=== PATIENT | female | born 1965 | race Caucasian/White ===

== ENCOUNTER 2020-03-27 10:31 | Emergency (ER) | payer SELFPAY ==
[~2020-03-27] VITALS: Ht 154.9 cm; Wt 52.2 kg
[2020-03-27 11:05] VITALS: BP_SYST 130
[2020-03-27 12:29] LABS: BASOPHILS % (AUTO) 0.2 % (0.0-2.0); HEMATOCRIT 37.6 % (36-48); HEMOGLOBIN 11.9 g/dL (12.0-16.0); LYMPHOCYTES # (AUTO) 1.2 K/uL (1.0-5.5); LYMPHOCYTES % (AUTO) 12.1 % (20.5-51.5); MEAN CORPUSCULAR HEMOGLOBIN 26 pg (27-31); MEAN CORPUSCULAR HGB CONC 32 % (32-36); MEAN CORPUSCULAR VOLUME 84 fL (79.0-98.0); MONOCYTES # (AUTO) 0.6 K/uL (0.0-1.0); MONOCYTES % (AUTO) 6.4 % (1.7-9.3); NEUTROPHILS # (AUTO) 7.9 K/uL (1.8-7.7); NEUTROPHILS % (AUTO) 81.3 % (40.0-70.0); PLATELET COUNT (AUTO) 407 K/uL (130-430); RED CELL DISTRIBUTION WIDTH 16.4 % (9.0-15.0); WHITE BLOOD COUNT (AUTO) 9.8 K/uL (4.8-10.8)
[2020-03-27 12:56] LABS: ALBUMIN 3.5 g/dL (3.4-4.8); CALCIUM 9.6 mg/dL (8.4-11.0); CREATININE 0.65 mg/dL (0.55-1.30); POTASSIUM 4.3 mmol/L (3.5-5.1); TOTAL BILIRUBIN 0.4 mg/dL (0.0-1.0)
[2020-03-27 13:01] LABS: BILIRUBIN,URINE 1+ (NEGATIVE); BLOOD, URINE NEGATIVE (NEGATIVE); CLARITY/URINE CLEAR (CLEAR); COLOR,URINE YELLOW (YELLOW); GLUCOSE,URINE NEGATIVE (NEGATIVE); KETONES,URINE 3+ (NEGATIVE); LEUKOCYTE ESTERASE ,URINE NEGATIVE (NEGATIVE); NITRITE, URINE NEGATIVE (NEGATIVE); PROTEIN URINE TRACE (NEGATIVE)
[2020-03-27 13:07] LABS: BACTERIA,URINE RARE /HPF (None Seen); RBC,URINE 0-3 /HPF (0-3); WBC,URINE 0-3 /HPF (0-3)
--- NOTE | 2020-03-27 13:49 | NUR ---
Patient to ER bed 08 to gown for evaluation. Side rails up.
[2020-03-27] MEDS ORDERED: KETOROLAC TROMETHAMINE 60 MG/2 ML VIAL IM ONE (14:00)
--- NOTE | 2020-03-27 14:01 | NUR ---
CALM, ALERT, GUARDED ABD PAIN, COMMUNICATES CLEARLY. RESP UNLABORED. LAST BM 2 DAYS AGO AND VOMITING THIS AM, UPON ARRIVAL, SHE APPEARS LETHARGIC, AND DISTENDED AND TENDER.
--- NOTE | 2020-03-27 14:06 | NUR ---
DR LINDSEY IN TO ASSESS
--- NOTE | 2020-03-27 14:49 | NUR ---
DR LINDSEY IN TO ASSESS
--- NOTE | 2020-03-27 15:03 | NUR ---
Patient given written and verbal discharge instructions and verbalizes understanding. ER MD discussed with patient the results and treatment provided. Patient in stable condition. ID arm band removed. Rx of TRAMADOL given. Patient educated on pain management and to follow up with PMD. Pain Scale 2/10 Opportunity for questions provided and answered. Medication side effect fact sheet provided.
[2020-03-27 15:04] VITALS: BP_SYST 127
== END 2020-03-27 15:04 | disposition home or self-care (01) ==
LOC: SED 10:31
DX: K56.7 Ileus, unspecified (principal)
CPT/HCPCS: 36415; 74018; 80053; 81000; 83690; 85025; 96372; 99284; J1885

== ENCOUNTER 2020-04-06 11:44 | Inpatient (IN) | payer OTHER, SELFPAY ==
[~2020-04-06] VITALS: Ht 154.9 cm; Wt 51.3 kg
[2020-04-06 11:50] VITALS: BP_SYST 125
--- NOTE | 2020-04-06 12:05 | NUR ---
Patient to ER bed H1 to gown for evaluation. Side rails up.
--- NOTE | 2020-04-06 12:06 | NUR ---
ER at bedside examining patient.
--- NOTE | 2020-04-06 12:10 | NUR ---
Pt brought by self,A&O x4 , pt presents to ER with abdominal pain/bloating, N/V,constipation x 1 week, skin pink and warm, cap refill <3, VSS, respirations even and unlabored, denie bleeding.
[2020-04-06] MEDS ORDERED: NACL 0.9% 1,000 ML IV ONE (13:15)
[2020-04-06 14:02] LABS: BASOPHILS % (AUTO) 0.3 % (0.0-2.0); HEMATOCRIT 35.7 % (36-48); HEMOGLOBIN 11.5 g/dL (12.0-16.0); LYMPHOCYTES # (AUTO) 1.2 K/uL (1.0-5.5); LYMPHOCYTES % (AUTO) 15.1 % (20.5-51.5); MEAN CORPUSCULAR HEMOGLOBIN 27 pg (27-31); MEAN CORPUSCULAR HGB CONC 32 % (32-36); MEAN CORPUSCULAR VOLUME 83 fL (79.0-98.0); MONOCYTES # (AUTO) 0.8 K/uL (0.0-1.0); MONOCYTES % (AUTO) 10.4 % (1.7-9.3); NEUTROPHILS # (AUTO) 5.9 K/uL (1.8-7.7); NEUTROPHILS % (AUTO) 74.2 % (40.0-70.0); PLATELET COUNT (AUTO) 379 K/uL (130-430); RED BLOOD CELL COUNT(AUTO) 4.33 MIL/uL (4.2-6.2); RED CELL DISTRIBUTION WIDTH 16.8 % (9.0-15.0); WHITE BLOOD COUNT (AUTO) 7.9 K/uL (4.8-10.8)
--- NOTE | 2020-04-06 14:09 | NUR ---
at bedside examining patient.
[2020-04-06 14:41] LABS: INR 1.2 (0.8-1.2); PROTHROMBIN TIME 11.6 SECS (9.5-12.5)
[2020-04-06 14:55] LABS: CALCIUM 9.6 mg/dL (8.4-11.0); CREATININE 0.59 mg/dL (0.55-1.30); POTASSIUM 3.8 mmol/L (3.5-5.1)
[2020-04-06 14:59] LABS: ALBUMIN 3.3 g/dL (3.4-4.8); TOTAL BILIRUBIN 0.3 mg/dL (0.0-1.0)
--- NOTE | 2020-04-06 15:05 | NUR ---
Pt resting at this time,no N/V noted, skin pink and warm, cap refill <3. VSS
[2020-04-06] MEDS: NACL 0.9% 1,000 ML IV SCH ×2 (15:44→16:00)
--- NOTE | 2020-04-06 15:56 | NUR ---
Patient will be admitted to care of Dr Hanna. Admitted to Med Surg unit. Will go to room 108C. Belongings list completed. Complete and up to date summary report printed. SBAR report to be given at bedside with opportunity for questions.
--- NOTE | 2020-04-06 16:00 | NUR ---
RECEIVED PT, VITAL SIGNS STABLE. CONTINUE TO MONITOR.
[2020-04-06 16:36] VITALS: BP_SYST 119
--- NOTE | 2020-04-06 17:00 | NUR ---
INSERTED NG TUBE WITH STEPHON BENTON. PT TOLERATED WELL, INTERMITTENT SUCTIONING ON, LIGHT BROWN DRAINAGE NOTED. CONTINUE TO MONITOR.
[2020-04-06] MEDS ORDERED: NALOXONE HCL 0.4 MG/ML AMP (NARCAN) IVP PRN (18:15)
[2020-04-06] MEDS ORDERED: PANTOPRAZOLE SODIUM 40 MG/VIAL (PROTONIX) IVP ONE (18:15)
--- NOTE | 2020-04-06 18:45 | NUR ---
CLOSING NOTES PT AWAKE, ALERT, AND ORIENTED. NONLABORED BREATHING NOTED ON ROOM AIR. PT DENIES PAIN AND SOB AT THIS TIME. NG TUBE INTACT AND ON INTERMITTENT SUCTIONING, LIGHT BROWN DRAINAGE NOTED. IV LINE INTACT AND PATENT, NO SIGNS OF INFILTRATION NOTED, FLUIDS RUNNING ORDERED, TOLERATING WELL. BED LOCKED AND IN LOWEST POSITION. ALL NEEDS MET. CALL LIGHT IN REACH. FALL AND ASPIRATION PRECAUTIONS IN PLACE. WILL ENDORSE TO NOC NURSE.
--- NOTE | 2020-04-06 19:30 | NUR ---
OPENING NOTES RECEIVED SBAR REPORT FROM DAY SHIFT RN. PT RESTING IN BED WITH HEAD OF BED ELEVATED, ALERT & ORIENTED X4. BREATHING IS EASY AND UNLABORED TO ROOM AIR. VSS. O2 SAT 96%. PT JAMEE ANY PAIN AT THIS TIME. NG TUBE INTACT AND ON INTERMITTENT SUCTIONING. IVF RUNNING ORDERED RATE. NO SIGNS OF INFILTRATION NOTED. BED LOCKED IN LOWEST POSITION. SIDE RAILS UP X3. CALL LIGHT WITHIN REACH. SAFETY AND FALL PRECAUTIONS MAINTAINED. WILL CONTINUE TO MONITOR.
--- NOTE | 2020-04-06 19:42 | NUR ---
CONSULTATION PAGED/CALLED Reason for Consultation: [] ABD PAIN, ILEUS VS PARTIAL SBO Person Who was Notified: [] ODALIS Consulting Physician: [] DR JOSE, SPAGHETTI MACHINE OPERATOR FOR DR Kvng DAWSON Director Business Management Specialty: [] GI Ordering Physician: [] DR ODOM
[2020-04-06 20:00] VITALS: BP_SYST 128
[2020-04-06] MEDS: MORPHINE 2 MG/ML INJ. SYRINGE IVP PRN (20:56)
--- NOTE | 2020-04-06 20:56 | NUR ---
PAIN/MORPHINE PT REPORTING ABDOMINAL PAIN. ADMINISTERED MORPHINE ORDERED PRN. DISCUSSED MEDICATION ACTIONS AND POTENTIAL SIDE EFFECTS. PT VERBALIZED UNDERSTANDING. BREATHING EVEN AND UNLABORED TO ROOM AIR. BED LOCKED IN LOWEST LEVEL. CALL LIGHT WITHIN REACH. SIDE RAILS X3. SAFETY AND FALL PRECAUTIONS MAINTAINED. WILL CONTINUE TO MONITOR.
--- NOTE | 2020-04-06 23:25 | NUR ---
RN ROUNDS PT RESTING IN BED WITH EYES CLOSED. BREATHING EVEN AND UNLABORED TO ROOM AIR. NO S/S OF ACUTE DISTRESS NOTED. IVF RUNNING ORDERED RATE. NO SIGNS OF INFILTRATION NOTED. BED LOCKED IN LOWEST POSITION. CALL LIGHT WITHIN REACH. SAFETY AND FALL PRECAUTIONS ARE IN PLACE. WILL CONTINUE TO MONITOR.
[2020-04-07 00:43] LABS: BILIRUBIN,URINE 2+ (NEGATIVE); BLOOD, URINE NEGATIVE (NEGATIVE); CLARITY/URINE CLEAR (CLEAR); COLOR,URINE YELLOW (YELLOW); GLUCOSE,URINE NEGATIVE (NEGATIVE); KETONES,URINE 3+ (NEGATIVE); LEUKOCYTE ESTERASE ,URINE NEGATIVE (NEGATIVE); NITRITE, URINE NEGATIVE (NEGATIVE); PH,URINE 5.5 (5.0-8.0); PROTEIN URINE NEGATIVE (NEGATIVE)
[2020-04-07 01:16] VITALS: BP_SYST 126
--- NOTE | 2020-04-07 01:40 | NUR ---
RESTING PT RESTING IN BED. BREATHING IS EVEN AND UNLABORED TO ROOM AIR. NG TUBE INTACT, INTERMITTENT SUCTIONING. NO SIGNS OF ACUTE DISTRESS NOTED. IVF RUNNING ORDERED RATE. PT TOLERATING WELL. BED LOCKED IN LOWEST POSITION. CALL LIGHT WITHIN REACH. SAFETY AND FALL PRECAUTIONS MAINTAINED. WILL CONTINUE TO MONITOR.
--- NOTE | 2020-04-07 04:05 | NUR ---
RN ROUNDS PT SLEEPING. BREATHING EVEN AND UNLABORED TO ROOM AIR. NO SIGNS OF ACUTE DISTRESS NOTED. PT DENIES PAIN. IVF RUNNING ORDERED RATE. NO SIGNS OF INFILTRATION. CALL LIGHT WITHIN REACH. SAFETY AND FALL PRECAUTIONS MAINTAINED. WILL CONTINUE TO MONITOR.
[2020-04-07] MEDS: NACL 0.9% 1,000 ML IV SCH (05:24)
--- NOTE | 2020-04-07 06:14 | NUR ---
Nutrition Update Abhijeet scale 16 noted. Pt admitted for small bowel obstruction. Diet: NPO BMI: 21.4 kg/m2 RD to follow per nutrition care standards.
--- NOTE | 2020-04-07 06:43 | NUR ---
CLOSING NOTES PT RESTING IN BED WITH HEAD OF BED ELEVATED. BREATHING IS EVEN AND UNLABORED TO ROOM AIR. NG TUBE INTACT AND ON INTERMITTENT SUCTIONING. IVF RUNNING ORDERED RATE. NO SIGNS OF INFILTRATION NOTED. BED LOCKED IN LOWEST LEVEL. SIDE RAILS UP X3. ALL NEEDS ARE MET THROUGHOUT SHIFT. CALL LIGHT WITHIN REACH. SAFETY AND FALL PRECAUTIONS MAINTAINED. WILL CONTINUE TO MONITOR UNTIL ENDORSE TO DAY SHIFT RN.
[2020-04-07 07:39] LABS: BASOPHILS % (AUTO) 0.2 % (0.0-2.0); HEMATOCRIT 31.6 % (36-48); HEMOGLOBIN 10.2 g/dL (12.0-16.0); LYMPHOCYTES # (AUTO) 0.8 K/uL (1.0-5.5); LYMPHOCYTES % (AUTO) 10.2 % (20.5-51.5); MEAN CORPUSCULAR HEMOGLOBIN 27 pg (27-31); MEAN CORPUSCULAR HGB CONC 32 % (32-36); MEAN CORPUSCULAR VOLUME 83 fL (79.0-98.0); MONOCYTES # (AUTO) 0.9 K/uL (0.0-1.0); MONOCYTES % (AUTO) 10.5 % (1.7-9.3); NEUTROPHILS # (AUTO) 6.6 K/uL (1.8-7.7); NEUTROPHILS % (AUTO) 79.1 % (40.0-70.0); PLATELET COUNT (AUTO) 349 K/uL (130-430); RED BLOOD CELL COUNT(AUTO) 3.81 MIL/uL (4.2-6.2); RED CELL DISTRIBUTION WIDTH 16.3 % (9.0-15.0); WHITE BLOOD COUNT (AUTO) 8.3 K/uL (4.8-10.8)
[2020-04-07 08:28] LABS: ALBUMIN 2.7 g/dL (3.4-4.8); BILIRUBIN,DIRECT 0.1 mg/dL (0.0-0.3); CALCIUM 8.8 mg/dL (8.4-11.0); CREATININE 0.54 mg/dL (0.55-1.30); POTASSIUM 3.6 mmol/L (3.5-5.1); THYROID STIMULATING HORMONE 0.44 uIu/mL (0.34-4.82); TOTAL BILIRUBIN 0.3 mg/dL (0.0-1.0)
--- NOTE | 2020-04-07 09:29 | NUR ---
Dietitian Recommendations *Recommend continue NPO *Recommend slowly advance diet as tolerated per MD if/when medically feasible. Please see Nutrition Assessment for details. KALLI LYN
[2020-04-07] MEDS: PANTOPRAZOLE SODIUM 40 MG/VIAL (PROTONIX) IVP SCH (10:01)
--- NOTE | 2020-04-07 10:05 | NUR ---
Patient in bed resting. Patient is alert and oriented x4. Patient denies distress, shortness of breath, and pain. patient experienced nausea and vomiting 2x this morning. 250 ml suctioned from NG tube. Patient is passing gas. All AM care needs met. Bed in low position. Call light in reach. 2 side rails up. Will continue to monitor patient.
--- NOTE | 2020-04-07 12:03 | NUR ---
SS NOTES/DCP/SELF-PAY MANAGER OF DIGITAL was referred by SS to see patient for DCP and self-pay. Demographic information update (PTN: Drew Malagon, spouse @ [phone] and NOK: Chiquis Encinas, mom @ [phone]. MANAGER OF DIGITAL phoned pt @ [phone], and stated reason for call. Pt is a 54 y/o female who came in via ED for abd pain. Pt lives with spouse and brother in an apartment on the second floor with 17 steps to get to the door. Pt is independent with her ADL's and no DME. 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 Pt denies any history of mental health and denies any history of substance use. Pt does not have insurance and no insurance through spouse. Pt agreed for Ramiro Weeks to be emailed for [employer] screening, but if pt does not qualify due to earnings, the patient will contact employer for insurance. Pt does not have an advanced directive and would like to get a copy. MANAGER OF DIGITAL will also provide patient with Rx coupon, and outpatient [facility] resource. Addendum: 04/07/20 at 1218 by Jaspreet SIERRA Parallon referral faxed.
[2020-04-07 12:16] VITALS: BP_SYST 133
[2020-04-07] MEDS ORDERED: GASTROGRAFIN 120 ML ONE (12:35)
[2020-04-07] MEDS: KCL 20 mEq in NS 1000 mL 1,000 ML IV SCH (13:07)
[2020-04-07 16:12] VITALS: BP_SYST 125
--- NOTE | 2020-04-07 18:58 | NUR ---
Patient in bed resting. Patient alert and oriented x4. Patient denies shortness of breath and distress. 500ML suctioned from NG tube via intermittent suction. All care needs met. Bed in low position. Call light in reach. 2 side rails up. Will give report to night nurse.
--- NOTE | 2020-04-07 19:30 | NUR ---
OPENING NOTES RECEIVED SBAR REPORT FROM DAY SHIFT RN. PT RESTING IN BED, ALERT & ORIENTED X4. BREATHING EVEN AND UNLABORED TO ROOM AIR. PT DENIES PAIN. NO S/S OF DISTRESS NOTED. NG TUBE INTACT, ON LOW INTERMITTENT SUCTION. IVF RUNNING ORDERED RATE, NO SIGNS OF INFILTRATION NOTED. CALL LIGHT WITHIN REACH. BED LOCKED IN LOWEST POSITION. SAFETY PRECAUTIONS MAINTAINED. WILL CONTINUE TO MONITOR.
[2020-04-07 20:00] VITALS: BP_SYST 134
[2020-04-07] MEDS: ONDANSETRON HCL 4 MG/2 ML VIAL IVP PRN (20:08)
--- NOTE | 2020-04-07 20:08 | NUR ---
ZOFRAN PT REPORTING NAUSEA AND VOMITING. PT VOMITED X1. ADMINISTERED ZOFRAN ORDERED PRN. DISCUSSED MEDICATION ACTIONS AND POTENTIAL SIDE EFFECTS. PT VERBALIZED UNDERSTANDING. CALL LIGHT WITHIN REACH. SAFETY AND FALL PRECAUTIONS MAINTAINED. WILL CONTINUE TO MONITOR.
--- NOTE | 2020-04-07 22:45 | NUR ---
RN ROUNDS PT RESTING IN BED. CHEST RISE AND FALL SYMMETRICAL. NO S/S OF ACUTE DISTRESS NOTED AT THIS TIME. IVF RUNNING ORDERED RATE. PT TOLERATING WELL. CALL LIGHT WITHIN REACH. SIDE RAILS X3. BED LOCKED IN LOWEST POSITION. SAFETY AND FALL PRECAUTIONS ARE IN PLACE. WILL CONTINUE TO MONITOR.
[2020-04-08] VITALS: BP_SYST 113
--- NOTE | 2020-04-08 00:35 | NUR ---
MIDNIGHT VITAL SIGN MIDNIGHT VITAL SIGN STABLE. BREATHING EVEN AND UNLABORED TO ROOM AIR. O2 SAT 97%. NO S/S OF DISTRESS NOTED. BED LOCKED IN LOWEST POSITION. CALL LIGHT WITHIN REACH. SAFETY AND FALL PRECAUTIONS ARE IN PLACE. WILL CONTINUE TO MONITOR.
--- NOTE | 2020-04-08 02:55 | NUR ---
RN ROUND PT SLEEPING, CHEST RISE AND FALL SYMMETRICAL. BREATHING EVEN AND UNLABORED TO ROOM AIR. NO S/S OF SHORTNESS OF BREATH OR PAIN NOTED. CALL LIGHT WITHIN REACH. SAFETY PRECAUTIONS MAINTAINED. WILL CONTINUE TO MONITOR.
--- NOTE | 2020-04-08 05:00 | NUR ---
RN ROUNDS PT VOMITED AGAIN. 50ML SUCTIONED FROM NG TUBE VIA INTERMITTENT SUCTION. BREATHING EVEN AND UNLABORED TO ROOM AIR. IVF RUNNING ORDERED RATE. NO SIGNS OF INFILTRATION NOTED. BED ALARM ON, BED LOCKED IN LOWEST POSITION. CALL LIGHT WITHIN REACH. SIDE RAILS UP. SAFETY AND FALL PRECAUTIONS MAINTAINED. WILL CONTINUE TO MONITOR.
--- NOTE | 2020-04-08 06:40 | NUR ---
CLOSING NOTES PT RESTING IN BED. BREATHING EVEN AND UNLABORED TO ROOM AIR. PT DENIES PAIN. NO S/S OF ACUTE DISTRESS NOTED. NG TUBE INTACT, ON LOW INTERMITTENT SUCTION. IVF RUNNING ORDERED RATE, NO SIGNS OF INFILTRATION NOTED. CALL LIGHT WITHIN REACH. BED LOCKED IN LOWEST POSITION. SAFETY PRECAUTIONS MAINTAINED. ALL NEEDS ARE MET THROUGHOUT SHIFT. WILL CONTINUE TO MONITOR UNTIL ENDORSE TO DAY SHIFT RN.
[2020-04-08 06:52] LABS: BASOPHILS % (AUTO) 0.2 % (0.0-2.0); HEMATOCRIT 32.6 % (36-48); HEMOGLOBIN 10.6 g/dL (12.0-16.0); LYMPHOCYTES % (AUTO) 9.4 % (20.5-51.5); MEAN CORPUSCULAR HEMOGLOBIN 27 pg (27-31); MEAN CORPUSCULAR HGB CONC 33 % (32-36); MEAN CORPUSCULAR VOLUME 83 fL (79.0-98.0); MONOCYTES # (AUTO) 1.2 K/uL (0.0-1.0); MONOCYTES % (AUTO) 11.3 % (1.7-9.3); NEUTROPHILS # (AUTO) 8.1 K/uL (1.8-7.7); NEUTROPHILS % (AUTO) 79.1 % (40.0-70.0); PLATELET COUNT (AUTO) 370 K/uL (130-430); RED BLOOD CELL COUNT(AUTO) 3.94 MIL/uL (4.2-6.2); RED CELL DISTRIBUTION WIDTH 16.6 % (9.0-15.0); WHITE BLOOD COUNT (AUTO) 10.2 K/uL (4.8-10.8)
[2020-04-08] MEDS: KCL 20 mEq in NS 1000 mL 1,000 ML IV SCH ×3 (07:08→17:33)
[2020-04-08 07:37] LABS: ALBUMIN 2.8 g/dL (3.4-4.8); CALCIUM 9.3 mg/dL (8.4-11.0); CREATININE 0.57 mg/dL (0.55-1.30); POTASSIUM 3.8 mmol/L (3.5-5.1); TOTAL BILIRUBIN 0.3 mg/dL (0.0-1.0)
[2020-04-08 07:52] VITALS: BP_SYST 117
--- NOTE | 2020-04-08 08:00 | NUR ---
Note Pt resting in bed with NGT in left nares to LIS at this time. No SOB/resp distress or pain/discomfort noted at this time. IV in right hand intact and patent infusing IVF's well. No needs noted at this time. Call light within reach. Pt is NPO at this time.
[2020-04-08] MEDS: PANTOPRAZOLE SODIUM 40 MG/VIAL (PROTONIX) IVP SCH (08:46)
--- NOTE | 2020-04-08 11:00 | NUR ---
Note Pt sitting up in bed on her cellphone with family/friends at this time. Denies any needs at this time. Call light within reach.
--- NOTE | 2020-04-08 11:40 | NUR ---
Note Pt given Zofran IVP at this time for emesis.
[2020-04-08] MEDS: ONDANSETRON HCL 4 MG/2 ML VIAL IVP PRN ×2 (11:41→23:45)
[2020-04-08 12:29] VITALS: BP_SYST 144
--- NOTE | 2020-04-08 14:10 | NUR ---
Note Pt resting in bed and denies any needs at this time. NGT to LIS on at this time. Call light within reach. Pt has been NPO all shift with some ice chips to moisten mouth.
[2020-04-08 16:37] VITALS: BP_SYST 131
--- NOTE | 2020-04-08 17:19 | NUR ---
CONSULT SURGERY SBO CAMILO MOORE [phone] S/W PARVIZ RESENDEZ
--- NOTE | 2020-04-08 17:20 | NUR ---
Note Dr Hanna came to assess pt at bedside at 1500. Results of the Small Bowel x-ray were given to Dr Hanna at 1700. Pt resting in bed with NGT to LIS on all shift. No needs noted at this time. Call light within reach.
--- NOTE | 2020-04-08 18:45 | NUR ---
Note Dr Rudy Walls called and orders received and followed. Pt resting in bed with NGT through left nares. IVF's infusing through right forearm - which is patent and intact all shift. Pt was checked on q1' and PRN all shift for needs and care. Pt denies any needs at this time. Call light within reach. Pt denies any SOB/resp distress or pain/discomfort at this time.
--- NOTE | 2020-04-08 19:00 | NUR ---
Note diesel technician stated NGT was not seen when doing chest x-ray at this time. NGT was advanced and another CXR done. NGT now in place in the abdomen.
[2020-04-08 19:25] VITALS: BP_SYST 120
--- NOTE | 2020-04-08 19:25 | NUR ---
INITIAL NOTES PATIENT IS STABLE AND LAYING IN BED. NO S/S OF RESPIRATORY DISTRESS NOTED. CALL LIGHT IN REACH. PATIENT SUCCESSFULLY DEMONSTRATES USAGE OF CALL LIGHT. BED IS LOCKED, AND AT THE LOWEST POSITION. PATIENT EDUCATED ON BED ALARM, PATIENT REFUSED. FALL, SAFETY, ASPIRATION, AND RESPIRATORY PRECAUTIONS WILL BE IN PLACE THROUGHOUT THE SHIFT. Addendum: 04/08/20 at 2203 by Ba Smith RN PLAN OF CARE IS DISCUSSED WITH PATIENT.
--- NOTE | 2020-04-08 19:35 | NUR ---
AMBULATED TO RESTROOM/NG TUBE DISLODGMENT PATIENT AMBULATED TO THE RESTROOM AT THIS TIME. PATIENT STATED SHE FELT WEAK. PATIENT REQUESTED BEDSIDE COMMODE. PATIENT NG TUBE WAS MOVED OUT AT THIS TIME. RE-INSERTED. PATIENT TOLERATED WELL. MADE CHARGE NURSE AWARE. CHARGE NURSE STATED TO ORDER CHEST X RAY PER PROTOCOL.
--- NOTE | 2020-04-08 20:05 | NUR ---
CHEST X RAY DONE TECH STATED IT WAS IN PLACE.
--- NOTE | 2020-04-08 22:00 | NUR ---
PATIENT IS SLEEPING AND STABLE IN BED. NO S/S OF RESPIRATORY DISTRESS NOTED. CALL LIGHT IN REACH.
--- NOTE | 2020-04-09 00:10 | NUR ---
AMBULATED TO BEDSIDE COMMODE PATIENT AMBULATED TO BEDSIDE COMMODE. PT TOLERATED WELL. NO S/S OF RESPIRATORY DISTRESS NOTED. CALL LIGHT IN REACH.
[2020-04-09 01:18] VITALS: BP_SYST 131
--- NOTE | 2020-04-09 02:10 | NUR ---
PT VOMITED PT VOMITED AT THIS TIME. PT VOMITED 300 CC AT THIS TIME. NO S/S OF RESPIRATORY DISTRESS NOTED. WILL CONTINUE TO MONITOR.
--- NOTE | 2020-04-09 03:48 | NUR ---
AMBULATED TO BEDSIDE COMMODE PATIENT AMBULATED TO BEDSIDE COMMODE. PT TOLERATED WELL. NO S/S OF RESPIRATORY DISTRESS NOTED. CALL LIGHT IN REACH.
[2020-04-09] MEDS: KCL 20 mEq in NS 1000 mL 1,000 ML IV SCH (04:35)
--- NOTE | 2020-04-09 04:58 | NUR ---
AMBULATED TO BEDSIDE COMMODE PATIENT AMBULATED TO BEDSIDE COMMODE. PT TOLERATED WELL. NO S/S OF RESPIRATORY DISTRESS NOTED. CALL LIGHT IN REACH.
--- NOTE | 2020-04-09 06:21 | NUR ---
CLOSING NOTES PATIENT IS STABLE AND LAYING IN BED. NO S/S OF RESPIRATORY DISTRESS NOTED. CALL LIGHT IN REACH. BED IS LOCKED AND AT THE LOWEST POSITION. FALL,SAFETY, ASPIRATION, AND RESPIRATORY PRECAUTION HAS BEEN IN PLACE THROUGHOUT THE SHIFT. WILL CONTINUE TO MONITOR UNTIL REPORT IS ENDORSED AM NURSE BY BEDSIDE.
[2020-04-09 06:54] LABS: BASOPHILS % (AUTO) 0.4 % (0.0-2.0); EOSINOPHILS % (AUTO) 0.1 % (0.0-4.0); HEMATOCRIT 31.6 % (36-48); HEMOGLOBIN 10.2 g/dL (12.0-16.0); LYMPHOCYTES # (AUTO) 1.2 K/uL (1.0-5.5); LYMPHOCYTES % (AUTO) 12.8 % (20.5-51.5); MEAN CORPUSCULAR HEMOGLOBIN 27 pg (27-31); MEAN CORPUSCULAR HGB CONC 32 % (32-36); MEAN CORPUSCULAR VOLUME 83 fL (79.0-98.0); MONOCYTES # (AUTO) 1.1 K/uL (0.0-1.0); MONOCYTES % (AUTO) 11.9 % (1.7-9.3); NEUTROPHILS # (AUTO) 6.8 K/uL (1.8-7.7); NEUTROPHILS % (AUTO) 74.8 % (40.0-70.0); PLATELET COUNT (AUTO) 344 K/uL (130-430); RED BLOOD CELL COUNT(AUTO) 3.83 MIL/uL (4.2-6.2); WHITE BLOOD COUNT (AUTO) 9.1 K/uL (4.8-10.8)
[2020-04-09 07:27] LABS: ALBUMIN 2.6 g/dL (3.4-4.8); CALCIUM 8.9 mg/dL (8.4-11.0); CREATININE 0.43 mg/dL (0.55-1.30); PHOSPHORUS 2.7 mg/dL (2.7-4.5); POTASSIUM 4.1 mmol/L (3.5-5.1); TOTAL BILIRUBIN 0.3 mg/dL (0.0-1.0)
--- NOTE | 2020-04-09 08:00 | NUR ---
ASSUMPTION OF CARE: RECEIVED PT A/A/OX4, DX: RISK FOR FLUID VOLUME DEFICIT, R/T SMALL BOWEL OBSTRUCTION, AFEBRILE, VSS, NO C/O PAIN, PT HAS EPISODES OF N/V, LIGHT BROWN COLORED EMESIS WITH FOUL ODOR, PRESENTLY HAS NGT CONNECTED TO LOW INTERMITTENT SUCTION, IV FLUIDS OF D51/2NS PLUS 20 MEQ KCL @ 1000CC/HR, IV SITE INTACT, PATENT, NO REDNESS OR SWELLING, ORIENTED TO UNIT, CALL LIGHT PLACED WITHIN REACH, WILL CONT' TO MONITOR AND ASSESS.
[2020-04-09 08:30] VITALS: BP_SYST 121
[2020-04-09] MEDS ORDERED: INSULIN LISPRO SLIDING SCALE 100 UNITS/ML VIAL (humaLOG) SUBCUT PRN (08:45)
[2020-04-09] MEDS ORDERED: D5W 1,000 ML IV PRN (09:00)
[2020-04-09] MEDS ORDERED: GLUCOSE 15 GM GEL (in 37.5 GM TUBE) PO PRN (09:00)
[2020-04-09] MEDS ORDERED: DEXTROSE 50%-WATER 50 ML DISP.SYRIN IVP PRN (09:00)
--- NOTE | 2020-04-09 09:00 | NUR ---
STAGE PRODUCER: MORNING MEDS GIVEN, PER ORDERED BY Mayur, TOLERATED WELL, WILL CONT' TO MONITOR AND ASSESS.
[2020-04-09] MEDS: PANTOPRAZOLE SODIUM 40 MG/VIAL (PROTONIX) IVP SCH (09:06)
[2020-04-09] MEDS: ONDANSETRON HCL 4 MG/2 ML VIAL IVP PRN ×2 (09:21→21:25)
[2020-04-09] MEDS: LORazepam 2 MG/ML VIAL IVP PRN ×2 (09:22→21:12)
--- NOTE | 2020-04-09 11:30 | NUR ---
GLUCOSE MONITORING: BLOOD SUGAR LEVEL=89, NO COVERAGE, WILL CONT' TO MONITOR AND ASSESS.
--- NOTE | 2020-04-09 11:45 | NUR ---
BSG 110 NO INSULIN COVERAGE NEEDED AT THIS TIME. WILL CONTINUE TO MONITOR. Addendum: 04/10/20 at 0058 by Amy Larson RN WRONG TIME ENTRY
[2020-04-09] MEDS: KCL 20 mEq in D5NS 1000 mL 1,000 ML IV SCH ×2 (11:58→21:12)
[2020-04-09 12:00] VITALS: BP_SYST 121
--- NOTE | 2020-04-09 12:30 | NUR ---
GLUCOSE MONITORING: BLOOD SUGAR HBWZU=136, NO COVERAGE, WILL CONT' TO MONITOR AND ASSESS.
--- NOTE | 2020-04-09 13:33 | NUR ---
MD PEÑA PAGED CAMILO BARLOW AT [phone] SPOKE WITH NATE.
--- NOTE | 2020-04-09 15:00 | NUR ---
NGT: 1 LITER OF DRAINAGE DISPOSED OF IN BIO CANISTER, NEW CANISTER PROVIDED, CONTINUOUS DRAINAGE COLLECTING, PT STATES SHE FEELS MUCH BETTER NOW, NO N/V NOTED, WILL CONT' TO MONITOR AND ASSESS.
[2020-04-09 16:53] VITALS: BP_SYST 109
--- NOTE | 2020-04-09 17:00 | NUR ---
GLUCOSE MONITORING: BLOOD SUGAR PRVKR=815, NO COVERAGE, WILL CONT' TO MONITOR AND ASSESS.
--- NOTE | 2020-04-09 19:30 | NUR ---
INITIAL NOTE PT RESTING IN BED. NGT TUBE IN LEFT NARE, ON CONTINUOUS SUCTION. PT DENIES ANY PAIN OR DISCOMFORT AT THIS TIME. EDUCATED PT ON SAFETY AND USE OF CALL LIGHT. PT DEMONSTRATED TEACH BACK. CALL LIGHT WITHIN REACH, BED IN LOW AND LOCKED POSITION.
[2020-04-09 20:00] VITALS: BP_SYST 111
--- NOTE | 2020-04-09 21:25 | NUR ---
ATIVAN/ZOFRAN PT COMPLAINING OF NAUSEA AND RESTLESSNESS. PRN ATIVAN AND ZOFRAN ADMINISTERED AT THIS TIME. NGT SUCTIONING CANISTER 1/3 FULL. WILL CONTINUE TO MONITOR.
--- NOTE | 2020-04-09 23:45 | NUR ---
BSG 110 NO INSULIN COVERAGE NEEDED AT THIS TIME. NO CHANGE IN ASSESSMENT, WILL CONTINUE TO MONITOR
[2020-04-10 00:05] VITALS: BP_SYST 111
--- NOTE | 2020-04-10 02:56 | NUR ---
RN ROUNDS PT COMPLAINING OF DISCOMFORT. PT ON BSC AT THIS TIME, VOIDED X1. PROVIDED PT WITH WASH CLOTHS. ASSISTED PT WITH PARTIAL BED BATH. SUCTION CONNECTED TO NGT, AND SECURED. PT STATES SHE IS HUNGRY AND WOULD LIKE FOOD. EDUCATED PT ON PURPOSE OF BEING KEPT NPO AT THIS TIME. PT VERBALIZED UNDERSTANDING. EDUCATED PT ON NEXT DOSE OF ATIVAN AND ZOFRAN. PT VERBALIZED UNDERSTANDING.
[2020-04-10] MEDS: ONDANSETRON HCL 4 MG/2 ML VIAL IVP PRN ×3 (04:29→20:36)
[2020-04-10] MEDS: KCL 20 mEq in D5NS 1000 mL 1,000 ML IV SCH ×2 (04:30→18:22)
--- NOTE | 2020-04-10 04:32 | NUR ---
NAUSEA PRN ZOFRAN ADMINISTERED AT THIS TIME. NGT TO CONTINUOUS SUCTIONING AND SECURED. WILL CONTINUE TO MONITOR.
[2020-04-10] MEDS: LORazepam 2 MG/ML VIAL IVP PRN ×2 (05:12→19:59)
--- NOTE | 2020-04-10 06:25 | NUR ---
CLOSING NOTE PT RESTING QUIETLY, NO ACUTE DISTRESS NOTED, BREATHING EVEN AND UNLABORED. IVF INFUSING WELL. NGT IN PLACE ON CONTINUOUS SUCTION, OUTPUT THROUGHOUT SHIFT 300CC TOTAL. NO S/S OF NAUSEA AT THIS TIME. ALL NEEDS ME THROUGHOUT SHIFT. CALL LIGHT WITHIN REACH, BED IN LOW AND LOCKED POSITION. WILL CONTINUE TO MONITOR UNTIL PT CARE ENDORSED TO MORNING SHIFT RN.
--- NOTE | 2020-04-10 07:19 | NUR ---
NG TUBE SUCTION 200 CC POSSIBLE SURGERY TODAY. REMAIN NPO PT IS WEAK. BED GONZALES RECOMMENDED STEAD OF BEDSIDE COMMODE.
--- NOTE | 2020-04-10 07:30 | NUR ---
Opening Note Report received from VICTOR M RN. Patient found in [facility], A/Ox4, patient has no complaints at this time. Denies nausea/vomiting. NG tube in place and set to low, intermittent suctioning. At this time, patient's output is 500 cc, brownish color. Patient requesting jello/juice. Patient re-educated that she is NPO at this time. Bed in low and locked position, call light within reach, side rails up x2.
[2020-04-10 08:00] VITALS: BP_SYST 103
--- NOTE | 2020-04-10 08:15 | NUR ---
MD Onel Sykes at bedside, states that patient can eat and remove NG tube. Primary RN will report to MD Hanna.
[2020-04-10] MEDS: PANTOPRAZOLE SODIUM 40 MG/VIAL (PROTONIX) IVP SCH (08:38)
--- NOTE | 2020-04-10 08:45 | NUR ---
MD Cyndi Hanna paged and informed of MD Sykes's assessment. Per MD Hanna, turn off intermittent suction and give patient water. If patient has nausea/vomiting, continue intermittent suctioning and keep patient NPO.
[2020-04-10] MEDS ORDERED: DEXTROSE 50% JECT 50 ML DISP.SYRIN IVP PRN (09:45)
--- NOTE | 2020-04-10 09:45 | NUR ---
PO Challenge Primary RN turned off intermittent suction and provided patient with cup of water, patient denies nausea/vomiting at this time.
--- NOTE | 2020-04-10 10:00 | NUR ---
PO Challenge Patient reports nausea after drinking water. PO challenge fail, patient connected to low intermittent suction.
--- NOTE | 2020-04-10 10:21 | NUR ---
Nutrition F/U Admitting Diagnosis: Small Bowel Obstruction Medical History Comment: PMH: Non-radiating and constant abdominal pain w/ bloating, constipation, nausea and vomiting x 1 week. PSH: cholecystectomy, appendectomy Pt also found w/ paralytic ileus vs SBO per MD note. COVID-19 pending 04/07 Subjective Information: TPN notification received 04/10 0437. Per attending MD notes, abd pain/N/V is resolving, abd distention reduced after adjustment of occluded NGT, c/w copious drainage. MD also noted pt is passing flatus and wants to eat jello. MD wants to keep pt NPO. Per EMR review, pt was started on insulin for DM, pt was seen by Dr. Cobb this morning who noted prolonged NPO status and wants to start PPN. RD agrees. RD s/w pharmD who concurred w/ RD rec for initial PPN concentration. Pt is not yet meeting adequate nutrition and would benefit from nutrition support. Current Diet Order/Nutrition Support: NPO x4 days Pertinent Medications: Protonix, Zofran, Insulin Pertinent Labs: 04/09 Na 128 L, K 4.1WNL, BUN 11 WNL, Cr 0.43 L, BG 63L POC BG 110H Weight (Pounds): 113 pounds 04/07 --No new weight. Skin Integrity Comment: Abhijeet scale 18. 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 (*ongoing) Altered nutrition related labs r/t endocrine dysfunction AEB elevated POC BG and DM. (*new 04/10) Expected Outcomes/Goals Monitor nutrition support and advancement of diet w/ goal of pt meeting more than 75% of estimated nutrient, labs trending WNL, normal GI function, skin integrity, and wt maintenance. Dietitian Recommendations *Recommend continue NPO *Recommend initiate nutrition support. D20% AA8.5% at 42ml/hr, IL20% at 5ml/hr via peripheral line. *Recommend increase PPN to goal: D20% AA8.5% at 90ml/hr, IL20% at 5ml/hr via peripheral line. Provides: 1341 kcal, 92gm protein, 2280ml and GIR 2.9gm CHO/kg/min Meets: 88% of upper end of estimated calorie needs and 151% of upper end of estimated protein needs. Follow Up High Risk: F/U in 2-3days
--- NOTE | 2020-04-10 10:34 | NUR ---
TPN to start/Diet Recommendation Dietitian Recommendations *Recommend continue NPO *Recommend initiate nutrition support. D20% AA8.5% at 42ml/hr, IL20% at 5ml/hr via peripheral line. *Recommend increase PPN to goal: D20% AA8.5% at 90ml/hr, IL20% at 5ml/hr via peripheral line. Provides: 1341 kcal, 92gm protein, 2280ml and GIR 2.9gm CHO/kg/min Meets: 88% of upper end of estimated calorie needs and 151% of upper end of estimated protein needs. Please see Nutrition F/U note for details. SENIOR CARE, RD
[2020-04-10 10:44] LABS: BASOPHILS % (AUTO) 0.4 % (0.0-2.0); EOSINOPHILS % (AUTO) 0.2 % (0.0-4.0); HEMATOCRIT 32.2 % (36-48); HEMOGLOBIN 10.4 g/dL (12.0-16.0); LYMPHOCYTES # (AUTO) 1.3 K/uL (1.0-5.5); LYMPHOCYTES % (AUTO) 16.2 % (20.5-51.5); MEAN CORPUSCULAR HEMOGLOBIN 27 pg (27-31); MEAN CORPUSCULAR HGB CONC 32 % (32-36); MEAN CORPUSCULAR VOLUME 83 fL (79.0-98.0); MONOCYTES % (AUTO) 12.9 % (1.7-9.3); NEUTROPHILS # (AUTO) 5.5 K/uL (1.8-7.7); NEUTROPHILS % (AUTO) 70.3 % (40.0-70.0); PLATELET COUNT (AUTO) 323 K/uL (130-430); RED BLOOD CELL COUNT(AUTO) 3.88 MIL/uL (4.2-6.2); RED CELL DISTRIBUTION WIDTH 17.3 % (9.0-15.0); WHITE BLOOD COUNT (AUTO) 7.8 K/uL (4.8-10.8)
[2020-04-10 10:59] LABS: ALBUMIN 2.3 g/dL (3.4-4.8); CALCIUM 8.4 mg/dL (8.4-11.0); CREATININE 0.48 mg/dL (0.55-1.30); PHOSPHORUS 1.8 mg/dL (2.7-4.5); TOTAL BILIRUBIN 0.2 mg/dL (0.0-1.0)
--- NOTE | 2020-04-10 11:00 | NUR ---
MD Balderas Spoke with MD Balderas via phone, , per MD Balderas, patient is still distended with output still coming out of NG tube. No new orders at this time. Patient is NPO. Primary RN will consult with attending MD Hanna about patient plan.
[2020-04-10] MEDS: INSULIN REGULAR, HUMAN 100 UNITS/ML, 10 ML VIAL (humuLIN R) SUBCUT PRN (11:11)
[2020-04-10] MEDS ORDERED: *PPN PER PHARMACY XX PRN (11:15)
[2020-04-10 12:15] VITALS: BP_SYST 116
[2020-04-10] MEDS ORDERED: [UNRECOGNIZED DRUG - OTHER] IV ONE (12:30)
[2020-04-10] MEDS ORDERED: NS IV ONE (12:30)
[2020-04-10] MEDS: MORPHINE 2 MG/ML INJ. SYRINGE IVP PRN (14:01)
--- NOTE | 2020-04-10 14:11 | NUR ---
Patient Update Patient upset that she is still in hospital. Patient states that she wants to go home because she has not been able to eat since . Patient informed that her abdomen is still distended and she is in pain. Patient advised to remain in hospital until she is seen by attending MD, Cyndi, for further orders and direction. Patient requesting pain medication for lower abdominal pain. 1 mg Morphine IVP provided.
[2020-04-10 16:19] VITALS: BP_SYST 108
--- NOTE | 2020-04-10 16:24 | NUR ---
PIV insertion 22 g PIV to right AC inserted, saline locked.
--- NOTE | 2020-04-10 18:51 | NUR ---
Closing Note Patient in [facility], [facility], bed in low and locked position, side rails up x2, bedside commode close to patient. Patient connected to intermittent suction via NG tube. Patient requires PPN nutrition through IV starting at 2100, will endorse to VICTOR M SZYMANSKI.
[2020-04-10 20:00] VITALS: BP_SYST 122
--- NOTE | 2020-04-10 20:00 | NUR ---
OPENING NOTE PT IS ALERT AND ORIENTED X4. STABLE VITAL SIGNS. REPORTED HIGH ANXIETY. 0.5 MG OF ATIVAN GIVEN WITH ZOFRAN DUE TO VOMITING. SHIFT'S PRIORITY IS TO KEEP PT ON NPO DUE TO POSSIBLE SURGERY TOMORROW, MONITOR GI SYSTEM, MANAGE ANXIETY AND VOMITING, GIVE MEDS ORDERED. BED IN LOW, CALL LIGHT IN REACH, BED RAILS X2.
[2020-04-10] MEDS ORDERED: SODIUM CHLORIDE IV SCH ×10 (21:00)
[2020-04-10] MEDS ORDERED: TPN PERIPHERAL IV SCH ×10 (21:00)
[2020-04-10] MEDS ORDERED: NACL 0.9% 1,000 ML IV SCH (21:00)
[2020-04-10] MEDS ORDERED: POTASSIUM CHLORIDE IV SCH ×10 (21:00)
[2020-04-10] MEDS ORDERED: [UNRECOGNIZED DRUG - OTHER] IV SCH ×10 (21:00)
[2020-04-10] MEDS: FAT EMULSIONS 250 ML IV SCH (23:01)
--- NOTE | 2020-04-11 | NUR ---
MIDNIGHT NOTE REMOVED IV ON RIGHT HAND DUE TO FILTRATION. PT ALSO ACCIDENTLY PULLED OUT RIGHT FOREARM IV. A NEW IV INSERTED ON THE RIGHT HAND, GAUGE 22. TPN, LIPIDS, AND KCL 20 MEQ ARE RUNNING. BED IN LOW, CALL LIGHT IN REACH.
[2020-04-11 00:24] VITALS: BP_SYST 113
[2020-04-11] MEDS: ONDANSETRON HCL 4 MG/2 ML VIAL IVP PRN ×2 (03:56→08:26)
[2020-04-11] MEDS: LORazepam 2 MG/ML VIAL IVP PRN (03:57)
[2020-04-11 07:02] LABS: EOSINOPHILS % (AUTO) 0.1 % (0.0-4.0); MEAN CORPUSCULAR HEMOGLOBIN 27 pg (27-31); MEAN CORPUSCULAR HGB CONC 33 % (32-36); MEAN CORPUSCULAR VOLUME 82 fL (79.0-98.0); MONOCYTES # (AUTO) 0.9 K/uL (0.0-1.0); MONOCYTES % (AUTO) 12.9 % (1.7-9.3); NEUTROPHILS # (AUTO) 4.6 K/uL (1.8-7.7)
[2020-04-11 07:04] LABS: BASOPHILS % (AUTO) 0.3 % (0.0-2.0); HEMATOCRIT 31.5 % (36-48); HEMOGLOBIN 10.3 g/dL (12.0-16.0); LYMPHOCYTES # (AUTO) 1.3 K/uL (1.0-5.5); LYMPHOCYTES % (AUTO) 19.3 % (20.5-51.5); NEUTROPHILS % (AUTO) 67.4 % (40.0-70.0); PLATELET COUNT (AUTO) 325 K/uL (130-430); RED BLOOD CELL COUNT(AUTO) 3.84 MIL/uL (4.2-6.2); RED CELL DISTRIBUTION WIDTH 17.2 % (9.0-15.0); WHITE BLOOD COUNT (AUTO) 6.8 K/uL (4.8-10.8)
--- NOTE | 2020-04-11 07:30 | NUR ---
Opening Note Report received from Mike RN. Patient found in [facility], + nausea/vomiting brown fluid. Patient's NG tube on low continuous suction. Primary RN increased suction to high continuous suction and 1000 ml of brown fluid was removed from NGT. Patient given Zofran and Morphine for nausea/vomiting and abdominal pain. New suction canister placed. Patient is back on low, continuous suction. Patient's peripheral IV to the hand is running PPN fluids and is patent. Will insert another PIV in case of surgery. Abdomen is softer than yesterday but still distended. Bed in low and locked position, side rails up x2, call light within reach.
[2020-04-11 08:00] VITALS: BP_SYST 114
[2020-04-11] MEDS: MORPHINE 2 MG/ML INJ. SYRINGE IVP PRN (08:25)
[2020-04-11 08:34] LABS: ALBUMIN 2.2 g/dL (3.4-4.8); CALCIUM 8.3 mg/dL (8.4-11.0); CREATININE 0.43 mg/dL (0.55-1.30); PHOSPHORUS 3.2 mg/dL (2.7-4.5); POTASSIUM 3.8 mmol/L (3.5-5.1); TOTAL BILIRUBIN 0.1 mg/dL (0.0-1.0)
--- NOTE | 2020-04-11 09:00 | NUR ---
DO Aracely Bose at bedside evaluating patient. Patient's NG tube now has green/yellow liquid coming through tube. Per DO Jessica, hold off on surgery with another day of low, continuous suction. Patient encouraged to ambulate frequently to help with peristalsis of her bowels.
--- NOTE | 2020-04-11 10:00 | NUR ---
Ambulation Primary RN ambulated with patient around [facility] perales. Patient reports mild lightheadedness with ambulation but associates this with laying down for multiple days. Patient has steady gait with minor assist. Patient walked about 200 feet.
[2020-04-11] MEDS ORDERED: GASTROGRAFIN 120 ML ONE (11:01)
[2020-04-11 12:00] VITALS: BP_SYST 115
--- NOTE | 2020-04-11 13:27 | NUR ---
Ambulation Patient ambulated around [facility] perales with nurse assist, approximately 200 ft.
[2020-04-11 16:00] VITALS: BP_SYST 112
[2020-04-11] MEDS: PANTOPRAZOLE SODIUM 40 MG/VIAL (PROTONIX) IVP SCH (17:57)
--- NOTE | 2020-04-11 19:08 | NUR ---
Closing Note Patient to go to surgery, pending consent from surgeon, DO Balderas. OR team at bedside. Will endorse care to NOC RN.
--- NOTE | 2020-04-11 19:20 | NUR ---
OPENING NOTES, DR. COULTER AT BEDSIDE Received patient resting in bed, no signs of acute respiratory distress, NG Tube in place, connected to low intermittent suction. Patient about to go to OR. Call light within reach, bed alarm on, bed at lowest position, SCD's on. Will continue to monitor.
[2020-04-11] MEDS ORDERED: ROCURONIUM BROMIDE 10 MG/ML (ZEMURON) IV ONE (19:37)
[2020-04-11] MEDS ORDERED: SUCCINYLCHOLINE CHLORIDE 20 MG/ML(QUELICIN) IVP ONE (19:37)
[2020-04-11] MEDS ORDERED: SEVOFLURANE 15 MIN GAS INH ONE (19:37)
[2020-04-11] MEDS ORDERED: PROPOFOL 200MG/ 20ML VIAL (DIPRIVAN) IV ONE (19:37)
[2020-04-11] MEDS ORDERED: DEXAMETHASONE SOD PHOSPHATE 4 MG/ML VIAL IVP ONE (19:37)
[2020-04-11] MEDS ORDERED: fentaNYL CITRATE/PF 100 MCG/2 ML AMP IVP ONE (19:37)
[2020-04-11] MEDS ORDERED: NEOSTIGMINE METHYLSULFATE 1 MG/ML, 10 ML VIAL IVP ONE (19:37)
[2020-04-11] MEDS ORDERED: ONDANSETRON HCL 4 MG/2 ML VIAL IVP ONE (19:37)
[2020-04-11] MEDS ORDERED: METOCLOPRAMIDE HCL 10 MG/2 ML VIAL IVP ONE (19:37)
[2020-04-11] MEDS ORDERED: MIDAZOLAM HCL 5 MG/5 ML VIAL IVP ONE (19:37)
[2020-04-11] MEDS ORDERED: KETOROLAC TROMETHAMINE 30 MG VIAL IVP ONE (19:37)
[2020-04-11] MEDS ORDERED: LR 1,000 ML IV.SOLN IV ONE (19:37)
[2020-04-11] MEDS ORDERED: GLYCOPYRROLATE 0.2 MG/ML VIAL IJ ONE (19:37)
[2020-04-11] MEDS ORDERED: PHENYLEPHRINE HCL 10 MG/ML VIAL (NEOSYNEPHRINE) IV ONE (19:37)
[2020-04-11] MEDS ORDERED: cefOXitin SODIUM 2 GM/VIAL (MEFOXIN) IV ONE (19:37)
[2020-04-11] MEDS ORDERED: SODIUM CHLORIDE IV SCH ×10 (21:00)
[2020-04-11] MEDS ORDERED: TPN PERIPHERAL IV SCH ×10 (21:00)
[2020-04-11] MEDS ORDERED: [UNRECOGNIZED DRUG - OTHER] IV SCH ×10 (21:00)
[2020-04-11] MEDS ORDERED: NA PHOS IV SCH ×10 (21:00)
[2020-04-11] MEDS ORDERED: ONDANSETRON HCL 4 MG/2 ML VIAL IVP PRN (22:00)
[2020-04-11] MEDS ORDERED: KETOROLAC TROMETHAMINE 30 MG VIAL IVP PRN ×3 (22:00)
[2020-04-11] MEDS ORDERED: HYDROmorphone 1 MG INJ. 1 MG/ML AMPUL IVP PRN (22:00)
[2020-04-11] MEDS ORDERED: NACL 0.9% 1,000 ML IV SCH (22:00)
[2020-04-11] MEDS ORDERED: HYDROmorphone 1 MG INJ. 1 MG/ML AMPUL ONE (22:23)
[2020-04-11] MEDS ORDERED: NS 500 ML IV ONE (23:00)
[2020-04-11] MEDS: NACL 0.9% 1,000 ML IV SCH (23:00)
--- NOTE | 2020-04-11 23:30 | NUR ---
Patient is back from surgery, patient stable, IV site patent, dressings c/d/i. Patient has surgical dressing at abdomen, no drainage noted, colostomy in upper rectal area, to be temporary, colostomy bag in place, will monitor for gas or output. NG tube suctioning to be continued with low intermittent suctioning. Cervantes catheter placed during surgery, to be in place for 2 days, draining by gravity, no kinks, no loops, bag not touching the floor. Will continue post-op vitals and monitor patient.
[2020-04-11 23:50] VITALS: BP_SYST 101
[2020-04-12] MEDS ORDERED: CEFAZOLIN 1 GM IVPB PREMIX 100 ML IV ONE (00:50)
[2020-04-12] MEDS ORDERED: metroNIDAZOLE 500 mg/NS 200 ML IV ONE (00:51)
[2020-04-12] MEDS: FAT EMULSIONS 250 ML IV SCH ×2 (00:51→21:58)
[2020-04-12 00:59] VITALS: BP_SYST 102
[2020-04-12] MEDS: CEFAZOLIN 1 GM IVPB PREMIX 50 ML IV SCH ×2 (01:13→08:24)
--- NOTE | 2020-04-12 02:10 | NUR ---
NEW IV SITE placed in Left forearm, patient tolerated well, antibiotics hung. Will continue to monitor.
[2020-04-12] MEDS: MORPHINE 2 MG/ML INJ. SYRINGE IVP PRN ×5 (02:12→21:50)
[2020-04-12] MEDS: metroNIDAZOLE 500 mg/NS 100 ML IV SCH ×2 (02:13→12:35)
[2020-04-12] MEDS: LORazepam 2 MG/ML VIAL IVP PRN ×2 (05:38→14:56)
[2020-04-12 07:22] LABS: BASOPHILS % (AUTO) 0.2 % (0.0-2.0); HEMATOCRIT 33.5 % (36-48); HEMOGLOBIN 10.5 g/dL (12.0-16.0); LYMPHOCYTES # (AUTO) 0.5 K/uL (1.0-5.5); LYMPHOCYTES % (AUTO) 4.2 % (20.5-51.5); MEAN CORPUSCULAR HEMOGLOBIN 26 pg (27-31); MEAN CORPUSCULAR HGB CONC 31 % (32-36); MEAN CORPUSCULAR VOLUME 84 fL (79.0-98.0); MONOCYTES # (AUTO) 0.7 K/uL (0.0-1.0); MONOCYTES % (AUTO) 5.7 % (1.7-9.3); NEUTROPHILS # (AUTO) 11.3 K/uL (1.8-7.7); NEUTROPHILS % (AUTO) 89.9 % (40.0-70.0); PLATELET COUNT (AUTO) 326 K/uL (130-430); RED BLOOD CELL COUNT(AUTO) 4.01 MIL/uL (4.2-6.2); RED CELL DISTRIBUTION WIDTH 17.2 % (9.0-15.0); WHITE BLOOD COUNT (AUTO) 12.6 K/uL (4.8-10.8)
--- NOTE | 2020-04-12 07:25 | NUR ---
CLOSING NOTES Patient resting in bed, HOB slightly elevated, no signs of distress, NG tube patent, in place, connected to low intermittent suction, drainage noted. Surgical dressing to abdomen clean, dry, and intact, no drainage noted. Cervantes catheter draining by gravity, no kinks, no loops, bag not touching the floor, talya urine noted. Colostomy bag in tact to ostomy site, scant amount of red drainage noted. Call light used throughout shift, all needs met throughout shift. Will endorse care to oncoming shift.
--- NOTE | 2020-04-12 07:43 | NUR ---
Opening Note received bedside SBAR report from shift supervisor film processing RN, patient resting in bed, respirations even and unlabored on room air, NGT connected to low intermittent suction, no acute distress noted, patient reports pain is controlled, surgical dressing to abdomen clean, dry, and intact, no drainage noted, colostomy bag to ostomy site, scant amount of red drainage noted in ostomy bag, educated patient on use of call light and asked to call for assistance, patient verbalized understanding, call light in reach, bed in low and locked position, bed alarm on.
[2020-04-12 07:56] LABS: ALBUMIN 1.9 g/dL (3.4-4.8); CALCIUM 7.9 mg/dL (8.4-11.0); CREATININE 0.75 mg/dL (0.55-1.30); PHOSPHORUS 2.8 mg/dL (2.7-4.5)
[2020-04-12 08:00] VITALS: BP_SYST 101
[2020-04-12] MEDS: PANTOPRAZOLE SODIUM 40 MG/VIAL (PROTONIX) IVP SCH (08:24)
[2020-04-12] MEDS: LEVOFLOXACIN 500 MG/D5W 100 ML IV SCH (09:41)
[2020-04-12] MEDS: INSULIN REGULAR, HUMAN 100 UNITS/ML, 10 ML VIAL (humuLIN R) SUBCUT PRN (09:42)
[2020-04-12 09:48] LABS: BILIRUBIN,DIRECT 0.1 mg/dL (0.0-0.3); TOTAL BILIRUBIN 0.1 mg/dL (0.0-1.0)
--- NOTE | 2020-04-12 10:35 | NUR ---
Spoke with Pharmacy spoke with Deepa from pharmacy, informed her that the 0600 dose of flagyl is not in medication room, per Deepa she will have the pharmacist look at the order and call back to the nurses station. Addendum: 04/12/20 at 1155 by Maria Eugenia Raygoza RN called pharmacy, spoke with Pharmacist Hanny, informed her that 0600 dose of flagyl is not in the medication room, per Hanny she will send a dose of flagyl to the floor to be administered now.
[2020-04-12 12:00] VITALS: BP_SYST 95
[2020-04-12] MEDS: NACL 0.9% 1,000 ML IV SCH (12:35)
--- NOTE | 2020-04-12 13:24 | NUR ---
Physician Rounds Dr. Balderas at bedside examining patient, per Dr. Balderas patient will remain NPO for now.
--- NOTE | 2020-04-12 15:41 | NUR ---
RN Rounds patient resting in bed, respirations even and unlabored on room air, patient reports anxiety is controlled at this time, patient reports pain is controlled at this time, NGT to low intermittent suction, no acute distress noted.
--- NOTE | 2020-04-12 16:02 | NUR ---
Physician Rounds Dr. Hanna at bedside examining patient, informed Dr. Hanna that patients WBCs this morning were 12.6, and HR was 115, no new orders.
[2020-04-12 16:20] VITALS: BP_SYST 99
[2020-04-12 16:40] VITALS: BP_SYST 133
--- NOTE | 2020-04-12 17:10 | NUR ---
P.T. NOTES P.T. EVAL COMPLETED; REFER TO EVAL FOR DETAILS.
--- NOTE | 2020-04-12 18:23 | NUR ---
RN Rounds patient resting in bed, respirations even and unlabored on room air, patient reports pain is controlled at this time, no acute distress noted.
--- NOTE | 2020-04-12 19:10 | NUR ---
OPENING NOTES Received patient resting in bed, no signs of acute respiratory distress, NG Tube in place, connected to low intermittent suction. IV sites patent, dressings c/d/i, TPN and Lipids and NS running at rate ordered by . Cervantes catheter in place, draining by gravity, no kinks Call light within reach, bed alarm on, bed at lowest position, SCD's on. Will continue to monitor.
--- NOTE | 2020-04-12 19:23 | NUR ---
Closing Note bedside SBAR report given to receiving RN, patient resting in bed, respirations even and unlabored on room air, NGT to low intermittent suction, no acute distress noted, patient reports pain is controlled, educated patient on use of call light and asked to call for assistance, patient verbalized understanding, educated patient on use of bed alarm for patient safety,bed in low and locked position, bed alarm on, care endorsed to Valentin RN.
[2020-04-12] MEDS ORDERED: [UNRECOGNIZED DRUG - OTHER] IV SCH ×10 (21:00)
[2020-04-12] MEDS ORDERED: TPN PERIPHERAL IV SCH ×10 (21:00)
[2020-04-12] MEDS ORDERED: NA PHOS IV SCH ×10 (21:00)
[2020-04-12] MEDS ORDERED: SODIUM CHLORIDE IV SCH ×10 (21:00)
--- NOTE | 2020-04-12 21:30 | NUR ---
Patient is talking to family, no signs of acute respiratory distress observed. Will continue to monitor.
--- NOTE | 2020-04-12 22:00 | NUR ---
Ice chips provided to patient, explained that patient is not able to eat at this time, and patient states that she wants to speak to the doctor and wants to go home. Reoriented patient to plan of care. Will continue to monitor.
--- NOTE | 2020-04-12 23:50 | NUR ---
Patient is resting, no signs of acute respiratory distress observed, snoring noted. Will continue to monitor.
[2020-04-13 00:32] VITALS: BP_SYST 94
[2020-04-13] MEDS: MORPHINE 2 MG/ML INJ. SYRINGE IVP PRN ×5 (04:14→23:21)
--- NOTE | 2020-04-13 04:15 | NUR ---
SBP of 111, no signs of acute respiratory distress observed, Pain medication to be provided. Will continue to monitor.
[2020-04-13 06:57] LABS: BASOPHILS % (AUTO) 0.1 % (0.0-2.0); EOSINOPHILS % (AUTO) 0.1 % (0.0-4.0); HEMATOCRIT 26.8 % (36-48); HEMOGLOBIN 8.5 g/dL (12.0-16.0); LYMPHOCYTES # (AUTO) 1.2 K/uL (1.0-5.5); LYMPHOCYTES % (AUTO) 9.8 % (20.5-51.5); MEAN CORPUSCULAR HEMOGLOBIN 26 pg (27-31); MEAN CORPUSCULAR HGB CONC 32 % (32-36); MEAN CORPUSCULAR VOLUME 82 fL (79.0-98.0); MONOCYTES # (AUTO) 0.9 K/uL (0.0-1.0); MONOCYTES % (AUTO) 7.4 % (1.7-9.3); NEUTROPHILS # (AUTO) 10.2 K/uL (1.8-7.7); NEUTROPHILS % (AUTO) 82.6 % (40.0-70.0); PLATELET COUNT (AUTO) 251 K/uL (130-430); RED BLOOD CELL COUNT(AUTO) 3.26 MIL/uL (4.2-6.2); RED CELL DISTRIBUTION WIDTH 16.7 % (9.0-15.0); WHITE BLOOD COUNT (AUTO) 12.4 K/uL (4.8-10.8)
--- NOTE | 2020-04-13 07:20 | NUR ---
CLOSING NOTES Patient resting in bed, HOB slightly elevated, no signs of distress, NG tube patent, in place, connected to low intermittent suction, drainage noted. Surgical dressing to abdomen clean, dry, and intact, no drainage noted. Cervantes catheter discontinued. Patient tolerated well. Colostomy bag in tact to ostomy site, scant amount of red drainage noted. Call light used throughout shift, all needs met throughout shift. Will endorse care to oncoming shift.
[2020-04-13 07:38] LABS: CREATININE 0.45 mg/dL (0.55-1.30); PHOSPHORUS 1.8 mg/dL (2.7-4.5); POTASSIUM 3.4 mmol/L (3.5-5.1)
[2020-04-13] MEDS: PANTOPRAZOLE SODIUM 40 MG/VIAL (PROTONIX) IVP SCH (08:23)
[2020-04-13] MEDS: LEVOFLOXACIN 500 MG/D5W 100 ML IV SCH (08:25)
--- NOTE | 2020-04-13 08:30 | NUR ---
Opening note/Pain patient resting in bed, a/ox4, states pain to medial abdomen, assessment complete, IV lines are patent and infusing well, dressing to medial abdomen is clean, dry and intact, left abdomen stoma is red and moist, minimal drainage noted in the bag, NGT to right nares to low intermittent suction, noted green/brown drainage is suction canister, Cervantes Catheter discontinued by Valentin SZYMANSKI at 0730 today, continuing to monitor for urine output, educated patient on plan of care, call light system, scheduled and PRN medication uses and potential side effects, she verbalized understanding, continuing to monitor the patient, bed in lowest position, three side rails up, call light within reach, fall and aspiration precautions in place. Patient is asking,"when can I eat?," informed her that we are monitoring her for passing gas and/or having a BM prior to starting patient on a diet, she verbalized understanding at this time.
[2020-04-13 08:37] VITALS: BP_SYST 110
[2020-04-13] MEDS: LORazepam 2 MG/ML VIAL IVP PRN ×2 (09:49→21:30)
--- NOTE | 2020-04-13 09:50 | NUR ---
RN rounds/Anxiety patient resting in bed, being assisted by BOBBIN COIL WINDER, patient was able to void in the bedpan at this time, tolerated well, patient asking for Ativan PRN, educated patient on uses of Ativan and potential side effects, she verbalized understanding, IV line is patent and infusing well, continuing to monitor patient, bed in lowest position, two side rails up, call light within reach, fall and aspiration precautions in place.
[2020-04-13] MEDS: NACL 0.9% 1,000 ML IV SCH (09:56)
--- NOTE | 2020-04-13 10:57 | NUR ---
Physical Therapy treatment attempted twice. Each time patient requested for therapist to return later. Plan: will attempt out of bed this afternoon.
--- NOTE | 2020-04-13 11:29 | NUR ---
Paged Dr. Cobb according to the patient, Dr. Cobb said that she can eat, no orders noted, will follow up with MD.
--- NOTE | 2020-04-13 11:55 | NUR ---
RN rounds patient resting in bed, awake, no signs of distress, patient asking,"when can I go home?," informed patient that the primary physician and/or surgeon will speak to her regarding discharge plan, at this time patient is POD #2, she verbalized understanding, no other needs at this time continuing to monitor, bed in lowest position, two side rails up, call light within reach, IV lines are patent and infusing well, fall and aspiration precautions in place.
[2020-04-13 12:09] VITALS: BP_SYST 99
--- NOTE | 2020-04-13 12:27 | NUR ---
Dr. Hanna rounds assessed patient, patient asking if she can eat, explained to the patient multiple times that she can't eat so soon after bowel surgery if she has not passed gas yet, the patient claims she did pass gas, again stated to the patient that healing can't be rushed and that the patient is receiving nutrition through TPN and lipids, the patient verbalized understanding, patient asking to go home, Dr. Hanna stated that again she needs time to heal and can't go home yet. Will follow up with any new orders from Dr. Hanna. Addendum: 04/13/20 at 1237 by Matthew Rajput RN Spoke with Dr. Hanna patient complaining of continued anxiety, last dose of Ativan was given today at 0949, Dr. Hanna ordered for Ativan 0.5mg IVP x1 now, will follow up.
[2020-04-13] MEDS ORDERED: LORazepam 2 MG/ML VIAL IVP ONE (12:45)
--- NOTE | 2020-04-13 12:52 | NUR ---
Nutrition F/U Admitting Diagnosis: Small Bowel Obstruction Medical History Comment: PMH: Non-radiating and constant abdominal pain w/ bloating, constipation, nausea and vomiting x 1 week. PSH: cholecystectomy, appendectomy Pt also found w/ paralytic ileus vs SBO per MD note. COVID-19 Negative 04/07 Subjective Information: Pt is POD#2 S/P Exp lap SBR of distal ileum, partial colectomy of the small portion of rectosigmoid w/ end colectomy specimen. Pt seen in bed this morning, c/o feeling hungry. TPN and lipid infusing as ordered. Pt reported to RD that MD saw her earlier who stated that she can eat. RD verified w/ RN who reported that MD has not placed any order to start diet. came to see pt and explained that pt can not eat yet and that pt is being fed via TPN, but pt still adamant to get her meal. Per Surgery, once pt passes gas and have BM, then okay to DC NGT set to suction and start clear liquid. Per EMR, pt almost left AMA yesterday d/t pt wants to eat. RD s/w pharmD regarding rec to increase TPN infusion rate to goal. PharmD acknowledged. Current Diet Order/Nutrition Support: NPO x7 days + D20%AA8.5 at60ml/hr, IL20% at 5ml/hr via Peripheral line Pertinent Medications: Protonix, Zofran, Insulin Pertinent Labs: 04/13 Na 126 L, K 3.4 L, BUN 7 L, CRE 0.45 L, BG 113 H, POC BG 125 H Weight (Pounds): 113 pounds 04/07 --No new weight. Skin Integrity Comment: Abhijeet scale 18. No PI's and no edemas noted per EMR Current % PO N/A, NPO Estimated Energy Expenditure (kcals/day) 9706-7900 kcal/day (25-30 kcal/kg CBW for maintenance) NEW Estimated Protein Required (g/day) 51-61 g pro/day (1.0-1.2 g pro/kg CBW for post-op repletion) Estimated Fluid Required (l/day) 1.3-1.5 L/day (1 ml/kcal/day for maintenance) Problem/Etiology/Signs/Symptoms Inadequate oral intake related to altered GI function as evidenced by unintentional wt loss of 2-3# in last 3 months, nausea and vomiting x 1 week [employer], eaten poorly for more than 1 week d/t decreased appetite, and NPO status. (*ongoing) Altered nutrition related labs r/t endocrine dysfunction AEB elevated POC BG and DM. (*ongoing) Expected Outcomes/Goals Monitor nutrition support and advancement of diet w/ goal of pt meeting more than 75% of estimated nutrient, labs trending WNL, normal GI function, skin integrity, and wt maintenance. Dietitian Recommendations *Recommend continue NPO *Recommend increase PPN to goal: D20% AA8.5% at 90ml/hr, IL20% at 5ml/hr via peripheral line. Provides: 1341 kcal, 92gm protein, 2280ml and GIR 2.9gm CHO/kg/min Meets: 88% of upper end of estimated calorie needs and 151% of upper end of estimated protein needs. Follow Up High Risk: F/U in 2-3days
--- NOTE | 2020-04-13 13:00 | NUR ---
Dietitian Recommendations *Recommend continue NPO *Recommend increase PPN to goal: D20% AA8.5% at 90ml/hr, IL20% at 5ml/hr via peripheral line. Provides: 1341 kcal, 92gm protein, 2280ml and GIR 2.9gm CHO/kg/min Meets: 88% of upper end of estimated calorie needs and 151% of upper end of estimated protein needs. RD s/w pharmD 0999 regarding rec. Please see Nutrition F/U note for details. DELMIS RD
--- NOTE | 2020-04-13 13:39 | NUR ---
RN rounds assisted patient to bedside commode, she voided and tolerated well, denies pain, no signs of distress, IV lines are patent and infusing well, NGT to left nare is to LIS and patent, continuing to monitor patient, bed in lowest position, two side rails up, call light and belongings within reach, fall and aspiration precautions in place.
--- NOTE | 2020-04-13 13:54 | NUR ---
RN rounds/Pain patient calling at this time, stating she is uncomfortable, assisted patient to reposition herself, she tolerated well, patient still asking for PRN pain medication, educated patient on pain medication uses and potential side effects, she verbalized understanding and tolerated well, IV line is patent and infusing well, continuing to monitor patient, bed in lowest position, two side rails up, call light within reach, fall and aspiration precautions in place .
--- NOTE | 2020-04-13 14:25 | NUR ---
Dr. Balderas rounds assessed patient, flushed NGT per Dr. Balderas request, Dr. Balderas informed patient that she can't eat yet until her bowels are more active and that patient needs to work with physical therapy as well, patient verbalized understanding. Will follow up with any new orders. Addendum: 04/13/20 at 1631 by Matthew Rajput RN Per - continue NGT on low continuous suction.
--- NOTE | 2020-04-13 15:48 | NUR ---
RN rounds patient resting in bed, eyes closed, breathing is even and unlabored, no signs of distress, continuing to monitor, bed in lowest position, two side rails up, call light within reach, fall and aspiration precautions in place.
[2020-04-13 16:32] VITALS: BP_SYST 100
--- NOTE | 2020-04-13 18:59 | NUR ---
Closing note patient resting in bed, eyes closed, breathing is even and unlabored, no signs of distress, IV lines are patent and infusing well, all needs met, will endorse report to NOC shift nurse, bed in lowest position, two side rails up, call light within reach, fall and aspiration precautions in place.
--- NOTE | 2020-04-13 19:30 | NUR ---
Initial note: Received report from gonzalez SZYMANSKI. Patient is in bed, resting. No acute distress. Even, nonlabored breathing on room air. IVF infusing as ordered. IV site patent and intact. NG tube to right nares to low intermittent suction noted with clear, green drainage. Colostomy noted with light brown stool. Bed is locked at lowest position. Bed alarm on. Side rails up x2. Call light is with patient. Safety and fall precautions in place. Will continue plan of care.
[2020-04-13 20:00] VITALS: BP_SYST 106
[2020-04-13] MEDS ORDERED: [UNRECOGNIZED DRUG - OTHER] IV SCH ×11 (21:00)
[2020-04-13] MEDS ORDERED: TPN PERIPHERAL IV SCH ×11 (21:00)
[2020-04-13] MEDS ORDERED: SODIUM CHLORIDE IV SCH ×11 (21:00)
[2020-04-13] MEDS ORDERED: NA PHOS IV SCH ×11 (21:00)
--- NOTE | 2020-04-13 21:30 | NUR ---
Anxiety: Patient complained of anxiety. Ativan 0.5mg Inj. IVP indicated per MD order. Educated patient on indications and side effects of medication. Patient verbalized understanding. Medication administered per MD order. Patient tolerated well. Will continue to monitor.
[2020-04-13] MEDS: FAT EMULSIONS 250 ML IV SCH (21:32)
--- NOTE | 2020-04-13 22:10 | NUR ---
IV RE-INSERTION: Complaining of pain to IV site. Restarted on R FOREARM. Successful after 1 attempt. Resumed current IVF of NS and regulated @ 50 per hour. Will observe for any signs of infiltration.
--- NOTE | 2020-04-13 23:21 | NUR ---
Pain: Patient complained of severe epigastric pain. Morphine 1mg Inj IVP indicated. Patient educated on indications and side effects of medication. Patient verbalized understanding. Medication administered per MD order. Patient tolerated well. Call light is with patient. Safety and fall precautions in place. Will continue to monitor.
[2020-04-14 00:07] VITALS: BP_SYST 113
--- NOTE | 2020-04-14 02:00 | NUR ---
Rounds: Patient is sleeping in bed. No acute distress. Even, nonlabored respirations on room air. Call light is with patient. Safety and fall precautions in place. Will continue monitoring.
[2020-04-14] MEDS: NACL 0.9% 1,000 ML IV SCH (04:04)
[2020-04-14] MEDS: MORPHINE 2 MG/ML INJ. SYRINGE IVP PRN ×3 (04:05→22:45)
--- NOTE | 2020-04-14 04:05 | NUR ---
Pain: Patient complained of severe lower abdominal pain. Morphine 1mg Inj IVP indicated. Educated patient on indications and side effects of medication. Patient verbalized understanding. Medication administered per MD order. Patient tolerated well. Call light is with patient. Safety and fall precautions in place. Will continue monitoring.
--- NOTE | 2020-04-14 06:45 | NUR ---
Closing note: Patient is in bed, resting. No acute distress. Even, nonlabored breathing on room air. IVF infusing as ordered. IV site patent and intact. NG tube to right nares to low intermittent suction noted with clear, yellow drainage. Colostomy noted with light brown stool. Bed is locked at lowest position. Bed alarm on. Side rails up x2. Call light is with patient. Safety and fall precautions in place. Will endorse care to gonzalez RN. Addendum: 04/14/20 at 0700 by Senia Wheatley RN All needs met.
--- NOTE | 2020-04-14 07:30 | NUR ---
Opening Note Report received from NOC RN. Patient found in [facility], A/Ox4, patient has her eyes closed and reports wanting to eat food. Patient informed about surgeon evaluation before she can be given liquids. Patient's NG tube is intact, on low continuous suctioning. No output noted at this time. There is clear, green fluid in the suction tubing for the NG Tube. Patient's peripheral IVs patent and intact, with IV fluid running. Patient's ostomy bag is clear of stool at this time. Patient's surgical incision, covered with bandages, no blood/fluid leaking and pad is not saturated. Bed is in low and locked position, side rails up x 2, call light within reach.
[2020-04-14 07:52] VITALS: BP_SYST 111
[2020-04-14] MEDS: LEVOFLOXACIN 500 MG/D5W 100 ML IV SCH (08:10)
[2020-04-14] MEDS: LORazepam 2 MG/ML VIAL IVP PRN ×2 (08:10→20:14)
[2020-04-14] MEDS: PANTOPRAZOLE SODIUM 40 MG/VIAL (PROTONIX) IVP SCH (08:10)
--- NOTE | 2020-04-14 09:15 | NUR ---
NG tube removal DO Andrey at bedside and states that NG tube can be removed. Patient's NG tube removed and patient tolerated procedure well.
[2020-04-14 09:17] LABS: ALBUMIN 1.3 g/dL (3.4-4.8); CALCIUM 7.7 mg/dL (8.4-11.0); CREATININE 0.54 mg/dL (0.55-1.30); PHOSPHORUS 2.4 mg/dL (2.7-4.5); TOTAL BILIRUBIN 0.2 mg/dL (0.0-1.0)
--- NOTE | 2020-04-14 09:20 | NUR ---
Ice chips Patient given ice chips and water. Patient instructed to drink and eat ice chips slowly. Patient reports no associated nausea/vomiting.
[2020-04-14 11:53] VITALS: BP_SYST 111
[2020-04-14 12:00] VITALS: BP_SYST 104
--- NOTE | 2020-04-14 12:00 | NUR ---
Bedside commode Patient assisted to bedside commode to void.
[2020-04-14] MEDS: SODIUM CHLORIDE IV SCH ×22 (12:11→21:52)
[2020-04-14] MEDS: NA PHOS IV SCH ×22 (12:11→21:52)
[2020-04-14] MEDS: FAT EMULSIONS 250 ML IV SCH ×2 (12:11→21:48)
[2020-04-14] MEDS: TPN PERIPHERAL IV SCH ×22 (12:11→21:52)
[2020-04-14] MEDS: [UNRECOGNIZED DRUG - OTHER] IV SCH ×22 (12:11→21:52)
--- NOTE | 2020-04-14 13:15 | NUR ---
Ostomy Bag Leaking Patient's ostomy site leaking around the seal into the surgical incision along the umbilicus. Patient's ostomy bag and glue replaced with new bag
[2020-04-14] MEDS ORDERED: POTASSIUM CHLORIDE 40 MEQ, LIDOCAINE JECT 2% PF 100 MG 50 MG in NS 250 ML IV ONE (13:30)
--- NOTE | 2020-04-14 18:33 | NUR ---
Closing Note Patient in bed, A/Ox4, patient requested pain medication and anxiety medication throughout the day. Ostomy bag intact not leaking at this time, minimal output in bag. Peripheral IVs intact. Bedside commode next to bed. Bed in low and locked position, side rails up x 2, call light within reach. Will endorse care to oncoming RN.
--- NOTE | 2020-04-14 19:10 | NUR ---
Initial note: Received report from dayssumit RN. Patient is in bed, watching TV. No acute distress. Even, nonlabored breathing on room air. IV fluids is infusing as ordered. IV sites patent and intact. Colostomy bag noted, with loose brown stool drainage. Abdominal incision noted clean and intact. Bed is locked at lowest position. Bed alarm is on. Call light is with patient. Safety and fall precautions in place. Will continue with plan of care.
[2020-04-14 19:48] VITALS: BP_SYST 106
--- NOTE | 2020-04-14 21:30 | NUR ---
PPN/ LIPIDS: Tanner NOTICED WHILE MAKING ROUNDS THAT PPN / LIPIDS ARE NOT CONNECTED TO THE PT AND HANGING ON THE IV POLE , Tanner CAME AND TALKED TO ME AND ASKED ABOUT IT,( PER CN REPORT PT IS STILL ON PPN AND LIPIDS ) INFORMED Tanner THAT IT WAS DCD BY DAY SHIFT RN DURING THE DAY ,RN DIDNT TELL ME WHEN OR WHICH DRMarcie GAVE THE ORDER TO DC IT , TO VERIFY THE ORDER Tanner GONE BACK TO EMR AND CHECKED , NO ORDERS FOUND AND NO NOTES FROM THE PRIMARY RN THAT MD ORDERED OR WHEN SHE DCD IT , GONE THROUGH MD PROGRESS NOTES , BOTH DR ODOM AND DR JOSE RECOMMENDING TO CONTINUE PT TO BE ON PPN , AND DR COULTER DIDNT MENTION ANYTHING ABOUT IT . SO CALLED MARISABEL SZYMANSKI FROM [facility] TO FIND OUT WHO GAVE HER THE ORDER SO RN CAN CALL THAT MD AND CAN GET AN ORDER . ( WITH THE PERMISSION OF VÍCTOR MCRAE AND RECEIVED NO FROM HER .). MARISABEL SZYMANSKI DIDNT ATTEND THE CALL OR NO CALL BACK RECEIVED FROM HER ; SO CALLED DR ODOM , INFORMED MD THAT DAY SHIFT DCD THE PPN AND LIPIDS , NO ORDERS IN THE COMPUTER TO DC PPN AND LIPIDS AND TRIED TO CALL DAY SHIFT RN SHE DIDNT CALL BACK YET . MD ASKED TO CONTINUE THE PPN AND LIPIDS PER PHARMACY ORDERED .
--- NOTE | 2020-04-14 22:45 | NUR ---
Pain: Patient complained of severe lower abdominal pain. Morphine 1mg Inj IVP indicated. Educated patient on indications and side effects of medication. Patient verbalized understanding. Medication administered per MD order. Patient tolerated well. Will continue monitoring.
[2020-04-15 00:12] VITALS: BP_SYST 118
--- NOTE | 2020-04-15 00:50 | NUR ---
Spoke to family: Spoke to patient's , Drew [phone]. Updated on patient status. Will endorse to gonzalez RN that family would like to speak to MD.
--- NOTE | 2020-04-15 01:45 | NUR ---
Round: Patient is sleeping in bed. No acute distress. Tolerating room air. Breathing is even, nonlabored. Call light is with patient. Safety and fall precautions in place. Will continue monitoring patient.
[2020-04-15] MEDS: MORPHINE 2 MG/ML INJ. SYRINGE IVP PRN ×3 (03:07→16:27)
--- NOTE | 2020-04-15 03:07 | NUR ---
Pain: Patient complained of severe pain. Morphine 1mg Inj IVP indicated. Educated patient on indications and side effects of medication. Patient verbalized understanding. Medication administered per MD order. Patient tolerated well. Will continue to monitor and reassess.
[2020-04-15] MEDS: NACL 0.9% 1,000 ML IV SCH (03:53)
--- NOTE | 2020-04-15 05:10 | NUR ---
Rounds: Patient is in bed, sleeping. No signs of acute distress. Breathing is even, nonlabored on room air. Call light is with patient. Safety and fall precautions in place. Will continue monitoring.
--- NOTE | 2020-04-15 07:25 | NUR ---
Closing note: Endorsed care to dayshift RN. Patient is in bed, resting. No acute distress. Even, nonlabored breathing on room air. TPN, Lipids, and IV fluids is infusing as ordered. IV sites patent and intact. Colostomy bag noted, with loose brown stool drainage. Abdominal incision noted clean and intact. All needs met. Bed is locked at lowest position. Bed alarm is on. Side rails up x2. Call light is with patient. Safety and fall precautions in place.
[2020-04-15 07:40] LABS: BASOPHILS % (AUTO) 0.5 % (0.0-2.0); EOSINOPHILS % (AUTO) 0.4 % (0.0-4.0); HEMATOCRIT 23.1 % (36-48); HEMOGLOBIN 7.4 g/dL (12.0-16.0); LYMPHOCYTES # (AUTO) 0.9 K/uL (1.0-5.5); LYMPHOCYTES % (AUTO) 11.3 % (20.5-51.5); MEAN CORPUSCULAR HEMOGLOBIN 26 pg (27-31); MEAN CORPUSCULAR HGB CONC 32 % (32-36); MEAN CORPUSCULAR VOLUME 81 fL (79.0-98.0); MONOCYTES # (AUTO) 0.8 K/uL (0.0-1.0); MONOCYTES % (AUTO) 9.6 % (1.7-9.3); NEUTROPHILS # (AUTO) 6.4 K/uL (1.8-7.7); NEUTROPHILS % (AUTO) 78.2 % (40.0-70.0); PLATELET COUNT (AUTO) 227 K/uL (130-430); RED BLOOD CELL COUNT(AUTO) 2.84 MIL/uL (4.2-6.2); RED CELL DISTRIBUTION WIDTH 16.9 % (9.0-15.0); WHITE BLOOD COUNT (AUTO) 8.1 K/uL (4.8-10.8)
[2020-04-15 07:59] LABS: ALBUMIN 1.4 g/dL (3.4-4.8); CALCIUM 8.4 mg/dL (8.4-11.0); CREATININE 0.48 mg/dL (0.55-1.30); PHOSPHORUS 2.6 mg/dL (2.7-4.5); POTASSIUM 3.4 mmol/L (3.5-5.1); TOTAL BILIRUBIN 0.2 mg/dL (0.0-1.0)
[2020-04-15 08:00] VITALS: BP_SYST 112
[2020-04-15] MEDS: PANTOPRAZOLE SODIUM 40 MG/VIAL (PROTONIX) IVP SCH (08:14)
[2020-04-15] MEDS: LEVOFLOXACIN 500 MG/D5W 100 ML IV SCH (08:14)
[2020-04-15] MEDS: LORazepam 2 MG/ML VIAL IVP PRN ×2 (08:15→16:26)
[2020-04-15] MEDS ORDERED: NA PHOS IV SCH ×22 (09:00→21:00)
[2020-04-15] MEDS ORDERED: [UNRECOGNIZED DRUG - OTHER] IV SCH ×11 (09:00)
[2020-04-15] MEDS ORDERED: TPN PERIPHERAL IV SCH ×22 (09:00→21:00)
[2020-04-15] MEDS ORDERED: SODIUM CHLORIDE IV SCH ×22 (09:00→21:00)
[2020-04-15 12:18] VITALS: BP_SYST 108
[2020-04-15] MEDS ORDERED: POTASSIUM CHLORIDE 20 MEQ/PKT PACKET PO ONE (14:30)
[2020-04-15 16:19] VITALS: BP_SYST 117
--- NOTE | 2020-04-15 16:59 | NUR ---
alert, oriented, and appropriate, c/o pain around the abdominal incision area. Abdomen slightly distended, but passed gas, and active bs. Brownish, liquid stool noted. MSOa4 1mg ivp given 1/2 hr later, asked for ATIVAN , 0.5mg ivp given Continue with PPN, and LIPID and ivf NS as ordered, altogether ( 138cc /hr), asked for bedpan often. Encouraged to get out of bed, and using BSC, refused. Compliant with IS, up to 1000cc, x15 times. K+ 3.4, got replaced with 20meq K+ packet. Start teaching how to change colostomy bag, " not ready yet, but my [id number], and [id number] ready. Made aware, visitation not allowable at this time, still did not want to participate in learning.. Colostomy bag change, all liquidified and odorous stools
--- NOTE | 2020-04-15 18:20 | NUR ---
P.T. NOTES D/C FROM P.T. AFTER TX; ENDORSED TO NURSING.
[2020-04-15 19:40] VITALS: BP_SYST 117
--- NOTE | 2020-04-15 19:40 | NUR ---
INITIAL NOTES PATIENT IS STABLE AND LAYING IN BED. NO S/S OF RESPIRATORY DISTRESS NOTED. CALL LIGHT IN REACH. PATIENT SUCCESSFULLY DEMONSTRATES USAGE OF CALL LIGHT. BED IS LOCKED AND AT THE LOWEST POSITION. PATIENT EDUCATED ON BED ALARM, PATIENT REFUSED. FALL, SAFETY, ASPIRATION, AND RESPIRATORY PRECAUTIONS WILL BE IN PLACE THROUGHOUT THE SHIFT. PLAN OF CARE IS DISCUSSED WITH PATIENT.
[2020-04-15] MEDS: FAT EMULSIONS 250 ML IV SCH (20:34)
[2020-04-15] MEDS ORDERED: [UNRECOGNIZED DRUG - OTHER] IV SCH ×11 (21:00)
--- NOTE | 2020-04-15 21:40 | NUR ---
IV SITE IS TENDER IV SITE ON THE RIGHT ARM IS TENDER. DC IV. NO S/S OF MAJOR BLEEDING. NEW IV IS PLACED ON LEFT FOREARM 20G.
--- NOTE | 2020-04-15 22:00 | NUR ---
OSTOMY BAG CHANGED OSTOMY BAG WAS LEAKING AT THIS TIME. NEW OSTOMY BAG WAS PLACED. PATIENT TOLERATED WELL. NO S/S OF RESPIRATORY DISTRESS NOTED.
--- NOTE | 2020-04-15 23:40 | NUR ---
EDUCATION/BED GONZALES PATIENT HAS BEEN REQUESTING BED GONZALES THROUGHOUT THE NIGHT. PATIENT EDUCATED ON, WALKING TO BEDSIDE COMMODE. PATIENT STATED SHE WILL IN THE MORNING. WILL CONTINUE TO EDUCATE.
[2020-04-16] MEDS: LORazepam 2 MG/ML VIAL IVP PRN (00:26)
--- NOTE | 2020-04-16 01:40 | NUR ---
PATIENT IS SLEEPING AND LAYING IN BED. NO S/S OF RESPIRATORY DISTRESS NOTED. CALL LIGHT IN REACH.
[2020-04-16 02:03] VITALS: BP_SYST 116
--- NOTE | 2020-04-16 03:40 | NUR ---
EDUCATION/BED GONZALES PATIENT HAS BEEN CALLING MULTIPLE TIMES TO USED THE BEDPAN. PATIENT WAS ENCOURAGED TO USE THE BED SIDE COMMODE ONCE AND STATED SHE CANT HOLD IT ENOUGH TO WALK TO THE BEDSIDE COMMODE. PATIENT HAS BEEN EDUCATED ON IMPORTANCE OF WALKING. PT AGREED IN THE MORNING SHE'LL TRY. PATIENT OTHERWISE TOLERATED USAGE OF BEDPAN. NO S/S OF RESPIRATORY DISTRESS NOTED. CALL LIGHT IN REACH.
[2020-04-16] MEDS: MORPHINE 2 MG/ML INJ. SYRINGE IVP PRN (05:48)
--- NOTE | 2020-04-16 07:21 | NUR ---
Attending Md Dr Hanna was called, Re: TO RENEW ATIVAN ORDER. Spoke to Darcy.
--- NOTE | 2020-04-16 07:30 | NUR ---
CLOSING NOTES PATIENT IS STABLE AND LAYING IN BED. NO S/S OF RESPIRATORY DISTRESS NOTED. CALL LIGHT IN REACH. BED IS LOCKED, AND AT THE LOWEST POSITION. FALL, SAFETY, ASPIRATION, AND RESPIRATORY PRECAUTIONS HAS BEEN IN PLACE THROUGHOUT THE SHIFT. SBAR REPORT ENDORSED TO AM NURSE.
--- NOTE | 2020-04-16 07:30 | NUR ---
GI,INCISION CARE Mid incision with gigi no redness dry/clean open to air cleanse with saline kept dry/clean., colostomy in the left side of stomach stoma pink color.
[2020-04-16 07:37] VITALS: BP_SYST 108
[2020-04-16] MEDS: PANTOPRAZOLE SODIUM 40 MG/VIAL (PROTONIX) IVP SCH (07:47)
[2020-04-16] MEDS: LEVOFLOXACIN 500 MG/D5W 100 ML IV SCH (07:47)
[2020-04-16 08:07] LABS: BASOPHILS % (AUTO) 0.5 % (0.0-2.0); EOSINOPHILS % (AUTO) 0.2 % (0.0-4.0); HEMATOCRIT 25.1 % (36-48); HEMOGLOBIN 8.1 g/dL (12.0-16.0); LYMPHOCYTES # (AUTO) 0.9 K/uL (1.0-5.5); LYMPHOCYTES % (AUTO) 12.3 % (20.5-51.5); MEAN CORPUSCULAR HEMOGLOBIN 26 pg (27-31); MEAN CORPUSCULAR HGB CONC 32 % (32-36); MEAN CORPUSCULAR VOLUME 81 fL (79.0-98.0); MONOCYTES # (AUTO) 0.8 K/uL (0.0-1.0); MONOCYTES % (AUTO) 11.2 % (1.7-9.3); NEUTROPHILS # (AUTO) 5.7 K/uL (1.8-7.7); NEUTROPHILS % (AUTO) 75.8 % (40.0-70.0); PLATELET COUNT (AUTO) 272 K/uL (130-430); RED BLOOD CELL COUNT(AUTO) 3.09 MIL/uL (4.2-6.2); WHITE BLOOD COUNT (AUTO) 7.5 K/uL (4.8-10.8)
[2020-04-16 08:11] LABS: ALBUMIN 1.5 g/dL (3.4-4.8); CALCIUM 8.2 mg/dL (8.4-11.0); CREATININE 0.5 mg/dL (0.55-1.30); PHOSPHORUS 3.3 mg/dL (2.7-4.5); POTASSIUM 3.4 mmol/L (3.5-5.1); TOTAL BILIRUBIN 0.2 mg/dL (0.0-1.0)
[2020-04-16] MEDS ORDERED: LORazepam 2 MG/ML VIAL IVP ONE (09:00)
--- NOTE | 2020-04-16 09:00 | NUR ---
Patient anxious to go home explained plan of care , advancing the diet , verbalized understanding, Ativan iv push given slowly safety/fall precaution initiated.
[2020-04-16 11:29] VITALS: BP_SYST 108
--- NOTE | 2020-04-16 11:55 | NUR ---
Colostomy care Colostomy intact no leaking stoma is pink , with air in the bag, emptied bag with brown loose color stool health teaching given proper emptying of the bag verbalized understanding.
--- NOTE | 2020-04-16 13:00 | NUR ---
Patient tolerating full liquid diet with nausea/vomiting no pain,PPN started to be tapered seen and examined by Dr. Hanna possible discharge in am explained to patient.
[2020-04-16] MEDS ORDERED: COMMUNICATION ORDER XX ONE (13:30)
[2020-04-16 15:29] VITALS: BP_SYST 116
--- NOTE | 2020-04-16 17:58 | NUR ---
Denies any abdominal pain tolerating full liquid diet , colostomy bag intact no leaking, PPN AT 44 ML/HOUR, needs attended.
--- NOTE | 2020-04-16 19:55 | NUR ---
OPENING NOTES Received report from STEPHON Goncalves. Patient resting in bed, AAOx4, breathing evenly and nonlabored on room air. Patient has an IV on the left forearm 22g, PPN running, another IV on the left hand KVO. Patient has a colostomy. Educated patient on plan of care, fall/safety/aspiration precautions, call light system, patient stated understanding, with return demonstration. Bed is locked armed, and at lowest position, will continue to monitor.
[2020-04-16 20:40] VITALS: BP_SYST 104
[2020-04-16] MEDS: ACETAMINOPHEN 325 MG TABLET PO PRN (20:45)
--- NOTE | 2020-04-16 20:45 | NUR ---
MEDICATIONS/ROUNDS Patient resting in bed, awake, breathing evenly and nonlabored on room air. PPN discontinued, IV on left forearm and left hand infiltrated and discontinued. Patient refused to have an IV started, asked for IV to be done in the morning. Patient complained of mild pain, educated patient on pain medication, nonpharmacological interventions, patient stated understanding. Administered pain medication, patient tolerated it well. Assisted patient to the bedpan. Colostomy emptied: 180mL taken, reinforced teaching on colostomy care. No other needs at this time. Fall/safety/aspiration precautions, will continue to monitor.
[2020-04-16] MEDS ORDERED: TPN PERIPHERAL IV SCH ×12 (21:00)
[2020-04-16] MEDS ORDERED: [UNRECOGNIZED DRUG - OTHER] IV SCH ×12 (21:00)
[2020-04-16] MEDS ORDERED: SODIUM ACETATE IV SCH ×12 (21:00)
[2020-04-16] MEDS ORDERED: SODIUM CHLORIDE IV SCH ×12 (21:00)
--- NOTE | 2020-04-16 22:35 | NUR ---
ROUNDS Patient resting in bed, awake, breathing evenly and nonlabored on room air. Assisted patient to the bedpan. Reinforced teaching regarding incentive spirometer, patient stated understanding with return demonstration. No other needs at this time. Fall/safety/aspiration precautions, will continue to monitor.
[2020-04-17] VITALS (8 sets, daily range): BP systolic 93–106
--- NOTE | 2020-04-17 00:28 | NUR ---
ROUNDS Patient resting in bed, eyes closed, breathing evenly and nonlabored on room air. No s/s of distress at this time, no other needs at this time. Fall/safety/aspiration precautions, will continue to monitor.
--- NOTE | 2020-04-17 04:01 | NUR ---
ROUNDS Patient resting in bed, awake, breathing evenly and nonlabored on room air. Vital signs stable. Patient asked for some jello which was provided. Encouraged patient to drink more water. Assisted patient on a bedpan. No s/s of distress at this time, no other needs at this time. Fall/safety/aspiration precautions, will continue to monitor.
--- NOTE | 2020-04-17 06:45 | NUR ---
CLOSING NOTES Patient resting in bed, awake, breathing evenly and nonlabored on room air. New IV started on the right forearm 22g SL. Assisted patient on a bedpan. No s/s of distress at this time, no other needs at this time. Needs met throughout the shift. Fall/safety/aspiration precautions, will endorse care to morning shift RN.
--- NOTE | 2020-04-17 07:00 | NUR ---
Assumed care from Stacie SZYMANSKI security shift supervisor. Patient awake alert oriented. able to make needs known. Abd incision with aiden open to air. Colostomy bag in place and draining brownish stool. Patient vital signs stable. No respiratory distress noted. Will continue care 1000: Patient voiding via bed mays and BSC. C/O feeling hot. No fever noted, Room temperature adjusted by facility. Will continue to monitor patient closely 1400: Patient seen and reassured of care, Patient still c/o of feeling hot. Ice packs given to patient. patient feels better. D/C education innitiated by ALTHEA and El. Patient and Family aware about D/C planning tomorrow. [id number]: Patient ambulated to BSC, No distress noted. Colostomy bag intact. Aiden intact and open to air. Patient resting in bed, will continue care
[2020-04-17 07:35] LABS: CALCIUM 8.4 mg/dL (8.4-11.0); CREATININE 0.54 mg/dL (0.55-1.30); PHOSPHORUS 3.7 mg/dL (2.7-4.5); POTASSIUM 3.4 mmol/L (3.5-5.1)
[2020-04-17] MEDS ORDERED: POTASSIUM CHLORIDE 10 MEQ TAB.PRT.SR PO ONE (09:15)
[2020-04-17] MEDS: PANTOPRAZOLE SODIUM 40 MG/VIAL (PROTONIX) IVP SCH (11:07)
[2020-04-17] MEDS: LEVOFLOXACIN 500 MG/D5W 100 ML IV SCH (11:08)
--- NOTE | 2020-04-17 13:16 | NUR ---
Nutrition F/U Admitting Diagnosis: Small Bowel Obstruction Medical History Comment: PMH: Non-radiating and constant abdominal pain w/ bloating, constipation, nausea and vomiting x 1 week. PSH: cholecystectomy, appendectomy Pt also found w/ paralytic ileus vs SBO per MD note. COVID-19 Negative 04/07 Subjective Information: Pt is POD#6 S/P exp lap SBR of diatl ileum, partial colectomy of the small portion of rectosigmoid w/ end colectomy specimen. Pt seen in bed this morning who reported that she is very sleepy, tolerating diet well but can only tolerate small amounts of food. On 04/16, pt was put on full liquid diet, TPN has been discontinued yesterday and pt was started on GI Soft diet. Pt w/ colostomy bag. RD provided nutrition education on Colostomy MNT. Handout from the Academy of [employer]etics were reviewed and provided to pt. Current Diet Order/Nutrition Support: GI Soft diet. Pertinent Medications: Protonix, Zofran, Insulin Pertinent Labs: 04/17 Na 127 L, K 3.4 L, BUN 7 L, CRE 0.54 L, BG 78 WNL, POC BG 83 WNL Weight (Pounds): 113 pounds 04/07 --No new weight. Skin Integrity Comment: Abhijeet scale 17. No PI's, +Surgical wound to medial abdomen. 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 (*ongoing) Altered nutrition related labs r/t endocrine dysfunction AEB elevated POC BG and DM. (*improved) Expected Outcomes/Goals Monitor nutrition support and advancement of diet w/ goal of pt meeting more than 75% of estimated nutrient, labs trending WNL, normal GI function, skin integrity, and wt maintenance. Dietitian Recommendations *Recommend continue GI Soft diet per Surgery. *Encourage pt to increase PO intake. Consider ONS if PO intake persists. Follow Up High Risk: F/U in 2-3days
--- NOTE | 2020-04-17 13:29 | NUR ---
Dietitian Recommendations *Recommend continue GI Soft diet per Surgery. *Encourage pt to increase PO intake. Consider ONS if PO intake persists. Please see Nutrition F/U note for details. DELMIS, KALLI
--- NOTE | 2020-04-17 13:56 | NUR ---
COLOSTOMY CARE TEACHING CALLED BY THE PATIENT TO EMPTY COLOSTOMY BAG. EDUCATE PATIENT NEED TO EMPTY BAG BY HERSELF. PATIENT WAS CRYING, SHE DID NOT WANT TO DO IT HERSELF BUT WITH ENCOURAGEMENT AND REASSURANCE SHE AGREED. PATIENT EMPTY OWN BAG WITHOUT INCIDENT.
--- NOTE | 2020-04-17 15:00 | NUR ---
WOUND EVALUATION: Wound Consult received from Dr. Balderas. Thank you, , for the consult. Patient received in a [place] Bed with a mattress, awake, alert, and oriented. Patient is unable to turn independently. Abhijeet Score is a . Past Medical History: Recent Labs: Intrinsic factors that delay wound healing: Extrinsic factors that delay wound healing: Decreased mobility. Microbiology: Wound Assessment: , present on admission. Wound bed is . No odor, no drainage. benja-wound intact. Measures . Recommend: Cleanse wound with normal saline. Place moisture barrier cream onto benja-wound. Cover with foam dressing. Perform wound care daily, and as needed for dressing soiling or dislodgement. Also recommend: Reposition patient every 2 hours with pillow support and off-load pressure areas with pillows for pressure re-distribution. Offload, elevate and float bilateral heels with pillows. Perform skin care and monitor skin integrity Q shift. Use moisture barrier cream on buttocks and other moisture susceptible areas QID and as needed for soiling. Place patient on a low air-loss mattress. Addendum: 04/18/20 at 1229 by El Adam RN Error, note saved prematurely in error. Please see new note at 1501.
--- NOTE | 2020-04-17 15:01 | NUR ---
WOUND EVALUATION: Late note for 04/17/2020 at 1501 secondary to patient care. Wound Consult received from Dr. Balderas. Thank you, Dr. Balderas, for the consult. Patient received in a [place] Bed with an Atmos-Air 9000 mattress, awake, alert, and oriented. Patient is able to turn in bed independently. Abhijeet Score is a 17. Past Medical History: No significant history reported. Patient was admitted for reported abdominal pain for the last 7-10 days. The patient had presented to the Emergency Department about a week ago for similar symptoms and was discharged home. Recent Labs: WBC 7.5, RBC 3.09, hemoglobin 8.1, hematocrit 25.1, sodium 132, sodium 127, potassium 3.4, chloride 96, BUN 7, creatinine 0.54, GFR 125, glucose 78, POC glucose 149. Microbiology: Blood culture results x2 negative. MRSA screen results negative.Intrinsic factors that delay wound healing: Extrinsic factors that delay wound healing: Surgical changes of the bowels. Pouch not removed for assessment secondary to patient refused removal of pouch. Wound Assessment: 1. Abdomen: Newly formed colostomy. Patient is status post exploratory laparotomy, small bowel resection at distal ileum, lysis of adhesions, partial colectomy, and end colostomy by Dr. Balderas on 04/11/2020. Stoma is oval, red, protruding (approximately 0.4 cm), and measures 3.5 cm x 3.5 cm. Claudia-Stomal area is intact, no erythema present. Surgical incision present Right lateral to stoma with gigi. Incision is approximated with no signs of infection. Abdomen is slightly distended, but soft. Bowel sounds present and soft light brown stool is present in the Colostomy pouch. Recommend: Cleanse site with mild soap and water. Gently pat dry claudia-stomal area and surrounding skin. Apply barrier ring to claudia-stomal area. Cut colostomy pouch to size using template as guide. Perform site care weekly, and as needed for Colostomy Pouch dislodgement. Patient was educated on Colostomy, stomal care, and diet. Patient did not fully understand teaching, but arrangements were made by Overlay Operator (Bhavesh) to have patient's [id number] (Malia) come tomorrow morning for Colostomy care education. Also recommend: Encourage and assist patient as needed with repositioning every 2 hours with pillow support and off-load pressure areas with pillows for pressure re-distribution. Offload, elevate and float bilateral heels with pillows. Perform skin care and monitor skin integrity Q shift.
--- NOTE | 2020-04-17 15:17 | NUR ---
DC Planning: discussed dcp to home with patient and El, wound care nurse at bedside. Planning to discharge pt tomorrow. El will do the colostomy care to patient today and dtr in law/Malia will come in tomorrow at 10 am to meet with El for colostomy care instruction as well. CRICKET Estes dir approved Malia to be at bedside for discharge instruction. El is assisting with getting colostomy supplies upon discharge. Pt. and family aware to check in with [facility] for medical and oncology f/u care. The pt does not have insurance/self pay , cm is unable to get the home health service f/u. I offered to assist with private pay for home health set up for colostomy care and PT. Malia will call back with decision after consulting with pt and family.
[2020-04-17] MEDS: ACETAMINOPHEN 325 MG TABLET PO PRN ×2 (16:20→21:14)
--- NOTE | 2020-04-17 20:20 | NUR ---
Opening note: Received patient from day shift nurse. Patient alert and oriented x4. Denies and discomfort at this time. Assisted client with emptying colostomy. Respirations even and unlabored. Safety precautions in place. Bed in low position, side rails up x2, call light within reach, patient able to call for help as needed.
--- NOTE | 2020-04-18 | NUR ---
Midnight note: Patient awake watching t.v. No signs of distress noted. Respirations even and unlabored. Denies discomfort at this time. Safety precautions in place, bed in low position, side rails up x2, call light within reach.
[2020-04-18 00:32] VITALS: BP_SYST 100
--- NOTE | 2020-04-18 03:34 | NUR ---
Rounds: Patient in bed resting. No signs of distress noted. Respirations even and unlabored. Safety precautions in place, bed in low position, side rails up x2, call light within reach, patient able to call for assistance as needed.
--- NOTE | 2020-04-18 07:00 | NUR ---
OPENING NOTE: Patient seen alert awake oriented. able to make needs known. Vital signs stable. [place] to lower mid abd intact and open to air. Colostomy bag intact and draining brownish stool. 1000: El wound nurse hands on with Patient daughter in-law and patient on colostomy care. Will continue to encourage learning and independence towards home care. Patient out of bed to BSC without assist. C/O of feelings of dizziness when out of bed. 1100. Pathology called but received answering service. pathology test still shows pending in the computer. Will update MD for possible D/C today.
[2020-04-18 08:16] LABS: CALCIUM 8.6 mg/dL (8.4-11.0); CREATININE 0.59 mg/dL (0.55-1.30); POTASSIUM 3.5 mmol/L (3.5-5.1)
[2020-04-18 08:49] VITALS: BP_SYST 106
--- NOTE | 2020-04-18 09:35 | NUR ---
WOUND RE-EVALUATION: Patient received in a [place] Bed with an Atmos-Air 9000 mattress, awake, alert, and oriented. Patient is able to turn in bed independently. Abhijeet Score is a 17. Past Medical History: No significant history reported. Patient was admitted for reported abdominal pain for the last 7-10 days. The patient had presented to the Emergency Department about a week ago for similar symptoms and was discharged home. Intrinsic factors that delay wound healing: Extrinsic factors that delay wound healing: Surgical changes of the bowels. Pouch not removed for assessment secondary to patient refused removal of pouch. Skin Assessment: 1. Abdomen: Newly formed colostomy. Patient is status post exploratory laparotomy, small bowel resection at distal ileum, lysis of adhesions, partial colectomy, and end colostomy by Dr. Balderas on 04/11/2020. Stoma is oval, red, protruding (approximately 0.4 cm), and measures 3.5 cm x 3.5 cm. Claudia-Stomal area is intact, no erythema present. Surgical incision present right lateral to stoma with gigi. Incision is approximated with no signs of infection. Abdomen is slightly distended, but soft. Bowel sounds present and soft light brown stool is present in the Colostomy pouch. Recommend: Cleanse site with mild soap and water. Gently pat dry claudia-stomal area and surrounding skin. Apply barrier ring to claudia-stomal area. Cut colostomy pouch to size using template as guide. Perform site care weekly, and as needed for Colostomy Pouch dislodgement. Patient and her zdybetdt-cw-zel Malia were educated on Colostomy, stoma care, and diet. Patient's daymaqbh-yy-rou was educated prior to pouch change and stoma care, then performed pouch removal, stoma care and applied a new Colostomy pouch. Malia had only a few questions which were answered. Malia performed pouch removal, stoma care and pouch placement with cues. Teaching understood as evidenced by appliance placement and repeat teachback. Six Colostomy pouches and other supplies (for at least a week) were given to patient along with a folder of education material (which includes a xydp-mw-zdyl pouch change guide and other Colostomy education). Patient was enrolled in [employer] plan and will receive a supply pouch with a few supplies at her home in the mail. In addition, [employer] will call patient within 72 hours to help her find a Colostomy supply vendor who will work with her now and when her insurance starts. Michael will send her more supplies during the interim period if needed. Also recommend: Encourage and assist patient as needed with repositioning every 2 hours with pillow support and off-load pressure areas with pillows for pressure re-distribution. Offload, elevate and float bilateral heels with pillows. Perform skin care and monitor skin integrity Q shift.
[2020-04-18] MEDS: PANTOPRAZOLE SODIUM 40 MG/VIAL (PROTONIX) IVP SCH (09:43)
[2020-04-18] MEDS: LEVOFLOXACIN 500 MG/D5W 100 ML IV SCH (09:44)
[2020-04-18 12:00] VITALS: BP_SYST 102
--- NOTE | 2020-04-18 12:10 | NUR ---
Discharge Planning: DCP faxed pt refedrral to [facility] (f [phone] p [phone]) DCP to follow up
[2020-04-18] MEDS ORDERED: POTASSIUM CHLORIDE 10 MEQ TAB.PRT.SR PO ONE (12:45)
--- NOTE | 2020-04-18 13:58 | NUR ---
Discharge arrangement: Colostomy supplies arranged by El Wound care nurse' s note: Patient and her yqnfqael-ad-sai Jaciel were educated on Colostomy, stoma care, and diet. Patient's wdkdlhkm-ln-jjh was educated prior to pouch change and stoma care, then performed pouch removal, stoma care and applied a new Colostomy pouch. Jaciel had only a few questions which were answered. Jaciel performed pouch removal, stoma care and pouch placement with cues. Teaching understood as evidenced by appliance placement and repeat teachback. Six Colostomy pouches and other supplies (for at least a week) were given to patient along with a folder of education material (which includes a mchb-me-kdaq pouch change guide and other Colostomy education). Patient was enrolled in [place] plan and will receive a supply pouch with a few supplies at her home in the mail. In addition, Michael will call patient within 72 hours to help her find a Colostomy supply vendor who will work with her now and when her insurance starts. Michael will send her more supplies during the interim period if needed. FOLLOW UP APPOINTMENT: ON APR 26, [address] LANIER AT [address] , [facility] [id number], TEL [phone] HOME HEALTH: JACIEL AND FAMILY REQUESTED A VISIT WITH PRIVATE PAY. [facility] WILL BE CONTACTING JACIEL FOR THE ARRANGEMENT. [facility] # . THE ABOVE INFORMATION PROVIDED TO JACIEL. DR. ODOM MADE AWARE.
--- NOTE | 2020-04-18 14:44 | NUR ---
Coil Finisher Note Received an order from Dr Hanna to see patient as she was given a diagnosis of cancer today. Met with patient at bedside. Patient is alert and oriented but feeling overwhelmed and tearful. She has multiple stressors. She is uninsured, will be unemployed, has a new cancer diagnosis, and her daughter in November. Offered support and suggestions. Provided disability paperwork and advice. Phoned Ramiro with [employer] who will expedite her [employer] application. Suggested she could call [facility], which is fairly close to her home. They accept [employer]. Provided my card. Jalen [place] has made patient a follow up wound care appointment at the local [facility]. They can also help with oncology referral. Will remain available upon request.
[2020-04-18 16:00] VITALS: BP_SYST 107
[2020-04-18 16:08] VITALS: BP_SYST 138
[2020-04-18] MEDS ORDERED: FAMO20TA8 PO (16:10)
== END 2020-04-18 17:10 | disposition home health service (06) | DRG 329 ==
LOC: SED 11:44 → SMU 15:12
PROVIDERS: ADMIT Internal Medicine; ATTEND Internal Medicine
PROC: 0D9670Z Drainage of Stomach with Drainage Device, Via Natural or Artificial Opening (ICD-10-PCS; principal; 2020-04-07)
PROC: 0DBN0ZZ Excision of Sigmoid Colon, Open Approach (ICD-10-PCS; 2020-04-11)
PROC: 0DBB0ZZ Excision of Ileum, Open Approach (ICD-10-PCS; 2020-04-11)
PROC: 0DQV0ZZ Repair Mesentery, Open Approach (ICD-10-PCS; 2020-04-11)
DX: K56.50 Intestinal adhesions [bands], unspecified as to partial versus complete obstruction (principal); E43 Unspecified severe protein-calorie malnutrition; D64.9 Anemia, unspecified; K56.2 Volvulus; F41.9 Anxiety disorder, unspecified; K62.9 Disease of anus and rectum, unspecified; Z98.891 History of uterine scar from previous surgery; Z90.49 Acquired absence of other specified parts of digestive tract; Z68.21 Body mass index [BMI] 21.0-21.9, adult
CPT/HCPCS: 36415; 71045; 74021; 74250-TC; 80048; 80053; 80076; 81003; 82962; 83605; 83690-TC; 83735-TC; 84100-TC; 84302-TC; 84443-TC; 84478-TC; 85025; 85610-TC; 87040-TC; 87081; 88305; 88307; 88309; 93005; 94760; 97110-GP; 97112-GP; 97116-GP; 97163; 97530-GP; 99285; A4371; A4409; A4421; A5061; C9113; J0330; J0610; J0690; J0694; J1100; J1170; J1815; J1885; J1956; J2060; J2250; J2270; J2370; J2405; J2704; J2710; J2765; J3010; J3475; J3480; J3490; J7030; J7050; J7120; J7131; Q9963; U0003-CS